=== PATIENT | male | born 1945 | race Caucasian/White ===

== ENCOUNTER 2018-08-07 05:51 | Inpatient (IN) | payer MEDICARE ==
--- NOTE | 2018-07-27 21:48 | HP ---
HISTORY AND PHYSICAL: DATE OF ADMISSION/SURGERY: 08/07/18 DATE OF OFFICE VISIT: 07/27/18 SURGEON: Verenice Chavarria MD * (DICTATED BY LIZZIE FISHER) PROCEDURE: Left total knee arthroplasty. CHIEF COMPLAINT: Left knee pain. HISTORY OF PRESENT ILLNESS: Mr. Sifuentes is a 73-year-old gentleman with end- stage osteoarthritis of the left knee. He has failed conservative treatment and elected to proceed with a left total knee arthroplasty, which is scheduled for 08/07/18. PAST MEDICAL HISTORY: Diabetes and hypertension. PAST SURGICAL HISTORY: Appendectomy, left heel surgery, right knee arthroscopy , and left knee arthroscopy x2. CURRENT MEDICATIONS: 1. Losartan potassium 50 mg daily. 2. Cymbalta daily. 3. Levemir daily. 4. Acyclovir 400 mg twice a day. 5. Glucosamine. 6. Multivitamin. 7. Pravastatin sodium 40 mg q.h.s. 8. Glipizide 10 mg daily. 9. Fish oil 81 mg. 10. Aspirin daily. 11. Testosterone intramuscular injections every 2 weeks. ALLERGIES: None. FAMILY HISTORY: Cancer. SOCIAL HISTORY: A 73-year-old gentleman, who lives with his . He does not smoke or use drugs. Uses alcohol rarely. REVIEW OF SYSTEMS: A complete 14-point review of systems is reviewed with the patient. Positive for diabetes. Denies history of DVT, PE, hepatitis, HIV, or anesthesia problems. PHYSICAL EXAMINATION GENERAL: He is well developed, well nourished, in no acute distress. VITAL SIGNS: He stands 5 feet 10 inches tall, weighs 190 pounds. His blood pressure is 124/70 and heart rate is 72. HEENT: Normocephalic, atraumatic. NECK: Supple. No palpable lymph nodes. PULMONARY: The lungs are clear to auscultation bilaterally. CARDIO: Regular rate and rhythm. Strong S1, S2. ABDOMEN: Soft, nontender, and nondistended. NEUROLOGICAL: He is alert and oriented x3. MUSCULOSKELETAL: Left lower extremity: The skin is intact. There are no open wounds or abrasions. He has some tenderness over the medial and lateral joint line. He has a valgus deformity of 12 degrees. His range of motion is 10 to 130 degrees of flexion with patellofemoral crepitus. 2+ dorsalis pedis pulse, intact sensation. His lower extremity muscle group strengths are intact at 5/5. ASSESSMENT AND PLAN: Mr. Sifuentes is a 73-year-old gentleman with end-stage osteoarthritis of the left knee. He has failed conservative treatment and elected to proceed with a left total knee arthroplasty, which is scheduled for 08/07/[address] Chavarria discussed the risks and benefits of the surgery at today's visit, all of his questions were answered. He will follow up with Dr. Chavarria 2 weeks after the surgery. LIZZIE FISHER [id number]/[facility] #: [id number] KAM
[~2018-08-07 05:51] MED LIST: Buffered Lidocaine 0.9% SYRIN* 5 ML/SYR SYRINGE INTRADERM ONE; Tranexamic Acid 1,000 MG in NS 0.9% 50 ML* (outpatient use) IV SCH
--- OUTSIDE RECORDS SUMMARY | 2018-08-07 05:56 | XMS REPORT | Continuity of Care Document ---
:1945 External Reference #:[id number] Author Name Brannon Anne M.D. Address [address] [place] [address] Care Team Providers Name Role Phone Brannon Anne M.D. Care Team Information Secretary Board Of Commissioners Unavailable Payers Type Date Identification Numbers Payment Provider Subscriber Policy Number: [id number] [employer] Aime Araujo Group Number: [id number] [address] PayID: [id number] FrazeeJAMES [id number] Advance Directives Description No Information Available Problems Description No Information Family History Date Family Member(s) Problem(s) Comments : (age 57 Father due to Cancer rare abdominal. (not Years) colon) Father Non Contributory : (age 88 Mother due to Pneumonia long smoking history. 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 Teaching some history and drawing as well. Tobacco Use Start: Unknown End: Former Cigarette Smoker quit 1979. 7 pk yr hx Unknown Allergies, Adverse Reactions, Alerts Description No Known Drug Allergies Medications Medication Date Status Form Strength Qnty SIG Indications Ordering Provider Cymbalta 07/[address] 30mg 30cap 1 po qd Part s Arpita Anne Pen [place] 12/04 Active Misc 31G X 5 100un 1 injection Brannon 12/15" mm its daily Arpita Anne Losartan 09/12 Active Tablets 50mg 90tab 1 by mouth Brannon s every day Dayana, (instead of M.D. lisinopril) Humalog Kwikpen 09/12 Active Solution 100Unit/M 15ml inject 20-25 Pen-Injec L -30 units Anne, t before dinner M.D. based on predinner blood sugar Bupropion HCL 09/02 Active Tablets 150mg 30tab 1 po qam F32.9 Brannon ER (SR) ER 12HR s Arpita Anne Insulin 12/21 Active Misc 31G X 100un use as Misa Syringe/U-100/02/14" 1 its directed Raheem, ML/31G X 02/14" ML ACTIVITIES LEADER-C Levemir 12/15 Active Solution 100Unit/M 120ml Inject 20 L units qd if Anne, FS>150 M.D. Acyclovir 11/17 Active Tablets 400mg 180ta take one bs tablet by Anne, mouth twice a M.D. day BD 3ML Luer-Yaima 12/01 Active Misc 21G X 1" 50uni for injection Brannon Syringe/21G X 3 ML ts q2 weeks Dayana 1" M.DGelacio BD Disposable 12/01 Active Misc 25G X 1" 50uni for injection Brannon Needle ts every 2 weeks Dayana Bevel 25GX1" M.D. Glucosamine 08/06 Active Capsules Brannon Dominic Anne M.DGelacio Multivitamins 08/06 Active Capsules Brannon Arpita Anne Pravastatin Active Tablets 40mg 90tab 1 by mouth / s every night at Dayana, bedtime M.D. Glipizide Active Tablets 10mg 180ta 1 by mouth bs once times Dayana, daily M.D. Testosterone Active Solution 200mg/ml 10ml 170 mg Brannon Enanthate / intramuscular Dayana, q2 weeks, code M.D. f Cialis Active Tablets 10mg 6tabs 1 by mouth every day as Anne, needed M.D. Freestyle Active Strips 100un test blood Insulinx Blood / its glucose 2-3 Anen, Glucose Test times daily, M.D. Strips on insulin. Januvia Active Tablets 100mg Take 1 Tablet Unknown By Mouth Every Day Fish Oil Active Capsules one by mouth Unknown every day Aspir-81 Active Tablets 81mg 1 by mouth Unknown [address] DR every day Tamicaien 05/26 Hx Tablets 10mg 14tab take 1/2 to 1 s tablet by Tabitha Candelaria, - mouth at [facility] 07/18 bedtime needed for sleep; maximum daily dose=1 Doxycycline 03/27 Hx Capsules 100mg 42cap 1 tab by mouth A69.20 Drew Hyvivian s twice a day x Casandra - 21 days , 07/13 Prednisone 01/02 Hx Tablets 20mg 10tab take 2 tabs by Nikolas9 Misa s mouth every Raheem, - day x 5 days [facility] 01/06 Doxycycline 12/31 Hx Tablets 100mg 20tab 1 tab by mouth Crow18.9 Misa Hyvivian s twice a day x Raheem, - 10 days [facility] 07/13 Guaifenesin-Cod 12/31 Hx Syrup 100-10mg/ 240ml 1-2 teaspoon J18.9 Brannon carrillo 5ML every 4-6 Anne, - hours as M.DGelacio 07/12 needed Ventolin HFA 12/31 Hx Aerosol 108(90Bas 1unit 2 puffs every J18.9 Misa e) s every 4-6 Raheem, - mcg/Act hours as [facility] 10/26 wheezing/tight ness BD Insulin 12/15 Hx Misc 31G X 02/14" 0.3 Anne, Ultrafine/0.3ML - ML M.D. /31G X 02/14" 12/21 Cymbalta 11/[address] 30mg 30cap 1 by mouth Part s every day Dayana - M.DGelacio 10/26 Levemir 12/01 Hx Solution 100Unit/M 30ml inject 70 Brannon Flexto Pen-Injec L units every Anne, - t day M.DGelacio 01/06 BD Pen 08/10 Hx Misc 31G X 5 100un Use as Brannon Needle/Mini/Ul /2014 mm its directed Dayana rafine/31G X - M.DGelacio 12/15" 12/21 Lantus Solostar Hx Solution 100Unit/M 30ml 28 units every Pen-Injec L day Dayana, - t M.DGelacio 12/01 Lisinopril Hx Tablets 20mg 90tab 1 by mouth s every day Dayana - M.DGelacio 10/26 Acyclovir Hx Capsules 200mg 370ca 2 po bid ps Dayana - M.DGelacio 11/17 BD 3ML Hx Misc 25G X 1" Unknown Syringe/Safetyg /0000 3 ML lide Shielding - Needle 25GX5/8" 12/21 Immunizations CPT Code Status Date Vaccine Lot # [id number] Given 04/05/2018 Hepatitis A, Adult [id number] Given 07/13/2017 Prevnar-13 Pneumococcal Conjugate Vaccine [id number] Given 06/16/2016 Tdap (Adacel) [id number] Given 07/09/2009 Zoster Vaccine [id number] Given 07/09/2009 Pneumovax 23 (PPSV23) 65+ years or high risk 2 to 64 year old [id number] Refused 08/07/2015 Influenza Virus Vaccine, Quadrivalent, 3 Yr > Quad , Preserv Free Vital Signs Date Vital Result Comment 07/18/2018 11:24am Weight 189.00 lb Weight 85.730 kg BP Systolic 128 mmHg BP Diastolic 76 mmHg Heart Rate 70 /min Body Temperature 97.8 F Respiratory Rate 17 /min Height 69.5 inches 5'9.50" BMI (Body Mass Index) 27.5 kg/m2 O2 % BldC Oximetry 96 % 11/28/2017 11:45am Weight 198.00 lb Weight 89.813 kg BP Systolic 124 mmHg BP Diastolic 78 mmHg Heart Rate 72 /min Body Temperature 97.8 F Respiratory Rate 17 /min O2 % BldC Oximetry 97 % 10/26/2017 5:01pm Weight 203.00 lb Weight 92.081 kg BP Systolic 150 mmHg BP Diastolic 68 mmHg Heart Rate 69 /min Body Temperature 97.8 F Respiratory Rate 18 /min O2 % BldC Oximetry 97 % 09/02/2017 10:19am Weight 198.00 lb Weight 89.813 kg BP Systolic 122 mmHg BP Diastolic 80 mmHg Heart Rate 89 /min Body Temperature 97.4 F O2 % BldC Oximetry 98 % 07/13/2017 2:04pm Weight 199.00 lb Weight 90.266 kg BP Systolic 124 mmHg BP Diastolic 70 mmHg Heart Rate 64 /min Body Temperature 97.4 F Respiratory Rate 14 /min Height 70 inches 5'10" BMI (Body Mass Index) 28.6 kg/m2 03/27/2017 4:55pm Weight 196.00 lb Weight 88.906 kg BP Systolic 130 mmHg BP Diastolic 76 mmHg Heart Rate 74 /min Body Temperature 98.7 F Respiratory Rate 20 /min O2 % BldC Oximetry 97 % 01/06/2017 8:50am Weight 191.00 lb Weight 86.638 kg BP Systolic 118 mmHg BP Diastolic 72 mmHg Heart Rate 77 /min Body Temperature 96.1 F Respiratory Rate 16 /min O2 % BldC Oximetry 97 % 12/31/2016 9:37am BP Systolic 110 mmHg BP Diastolic 70 mmHg Heart Rate 91 /min Body Temperature 99.1 F O2 % BldC Oximetry 92 % On Room Air 12/15/2016 10:44am Weight 200.00 lb Weight 90.720 kg BP Systolic 140 mmHg BP Diastolic 80 mmHg Heart Rate 80 /min 11/17/2016 9:47am Weight 199.00 lb Weight 90.266 kg BP Systolic 130 mmHg BP Diastolic 80 mmHg Heart Rate 64 /min Body Temperature 98.7 F Respiratory Rate 12 /min 07/28/2016 10:16am Weight 198.00 lb Weight 89.813 kg BP Systolic 120 mmHg BP Diastolic 72 mmHg Heart Rate 68 /min Body Temperature 98.1 F Respiratory Rate 16 /min 04/20/2016 4:00pm Weight 196.00 lb Weight 88.906 kg BP Systolic 150 mmHg BP Diastolic 70 mmHg Heart Rate 70 /min Body Temperature 98.6 F Respiratory Rate 12 /min O2 % BldC Oximetry 98 % 01/05/2016 2:48pm Weight 200.00 lb Weight 90.720 kg BP Systolic 130 mmHg BP Diastolic 68 mmHg Heart Rate 70 /min 12/02/2015 8:51am Weight 198.00 lb Weight 89.813 kg BP Systolic 131 mmHg BP Diastolic 76 mmHg Heart Rate 76 /min Height 70.5 inches 5'10.50" BMI (Body Mass Index) 28.0 kg/m2 08/06/2015 10:57am Weight 198.00 lb Weight 89.813 kg BP Systolic 144 mmHg BP Diastolic 86 mmHg Heart Rate 66 /min Height 69.5 inches 5'9.50" BMI (Body Mass Index) 28.8 kg/m2 Results Test Date Facility Test Result H/L Range Note Inr/Protime 07/27/2018 [facility] Inr 0.97 0.77- 1.02 7 [phone] Laboratory test 07/27/2018 [facility] Partial 29.4 seconds 26.0-36.3 2 finding [phone] Thrombo Time PTT Type & Screen 07/27/2018 [facility] Patient O Positive [phone] Blood Type Antibody Screen NEGATIVE Urine Microalbumin 07/18/2018 [facility] Ur Microalbumin < 15.0 Random [phone] (mg/L) Urine Creatinine 122.21 mg/dL Urine Microalbumin/Creatinine TNP <31 3 Comp Metabolic Panel 07/10/2018 [facility] Sodium 137 mmol/L 135-145 [phone] Potassium 4.8 mmol/L 3.5-5.0 Chloride 101 mmol/L 101-111 Co2 Carbon Dioxide 29 mmol/L 22-32 Anion Gap 7 mmol/L 2-11 Glucose 234 mg/dL High 70-100 Blood Urea Nitrogen 22 mg/dL 6-24 Creatinine 0.95 mg/dL 0.67-1.17 BUN/Creatinine Ratio 23.2 High 8-20 Calcium 9.4 mg/dL 8.6-10.3 Total Protein 6.4 g/dL 6.4-8.9 Albumin 4.4 g/dL 3.2-5.2 Globulin 2.0 g/dL 2-4 Albumin/Globulin Ratio 2.2 1-3 Total Bilirubin 0.60 mg/dL 0.2-1.0 Alkaline Phosphatase 52 U/L 34-104 Alt 44 U/L 7-52 Ast 28 U/L 13-39 Egfr Non- 78.2 >60 Egfr 94.6 >60 4 Lipid Profile 07/10/2018 [facility] Triglycerides 510 mg/dL 5 (Trig/Chol/HDL) [phone] Cholesterol 203 mg/dL 6 HDL Cholesterol 37.0 mg/dL 7 LDL Cholesterol (SEE NOTE) mg/dL 8 CBC Auto Diff 07/10/2018 [facility] White Blood 7.1 10^3/uL 3.5-10.8 [phone] Count Red Blood Count 4.93 10^6/uL 4.00-5.40 Hemoglobin 14.7 g/dL 14.0-18.0 Hematocrit 44 % 42-52 Mean Corpuscular Volume 89 fL 80-94 Mean Corpuscular Hemoglobin 30 pg 27-31 Mean Corpuscular HGB Conc 34 g/dL 31-36 Red Cell Distribution Width 14 % 10.5-15 Platelet Count 171 10^3/uL 150-450 Mean Platelet Volume 9.0 um3 7.4-10.4 Abs Neutrophils 4.4 10^3/uL 1.5-7.7 Abs Lymphocytes 2.1 10^3/uL 1.0-4.8 Abs Monocytes 0.6 10^3/uL 0-0.8 Abs Eosinophils 0.1 10^3/uL 0-0.6 Abs Basophils 0 10^3/uL 0-0.2 Abs Nucleated RBC 0.1 10^3/uL Granulocyte % 61.4 % 38-83 Lymphocyte % 28.9 % 25-47 Monocyte % 8.3 % High 0-7 Eosinophil % 1.1 % 0-6 Basophil % 0.3 % 0-2 Nucleated Red Blood Cells % 0.7 Laboratory test 07/10/2018 [facility] Testosterone 171.48 Low 240-950 9 finding [phone] Total ng/dL LDL Cholesterol Direct 69 mg/dL 10 Istat BUN/Crea/Egfr/V 11/10/2017 [facility] Poc Bun 20 mg/dL High 9-18 Mainct [phone] Mainct Poc Crea Mainct 0.9 mg/dL 0.6-0.9 GFR Non- MCT 83.4 >60 GFR Mainct 107.3 >60 11 Comp Metabolic 10/26/2017 [facility] Sodium 137 mmol/ L 133-145 12 Panel [phone] Potassium 4.2 mmol/L 3.5-5.0 Chloride 102 mmol/L 101-111 Co2 Carbon Dioxide 30 mmol/L 22-32 Anion Gap 5 mmol/L 2-11 Glucose 139 mg/dL High 70-100 Blood Urea Nitrogen 17 mg/dL 6-24 Creatinine 0.99 mg/dL 0.67-1.17 BUN/Creatinine Ratio 17.2 8-20 Calcium 9.3 mg/dL 8.6-10.3 Total Protein 6.6 g/dL 6.4-8.9 Albumin 4.4 g/dL 3.2-5.2 Globulin 2.2 g/dL 2-4 Albumin/Globulin Ratio 2.0 1-3 Total Bilirubin 0.70 mg/dL 0.2-1.0 Alkaline Phosphatase 55 U/L 34-104 Alt 54 U/L High 7-52 Ast 28 U/L 13-39 Egfr Non- 74.7 >60 Egfr 96.1 >60 13 Laboratory test 10/26/2017 [facility] Lipase 21 U/L 11.0-82.0 14 finding [phone] CBC Auto Diff 10/26/2017 [facility] White Blood 6.4 3.5-10.8 [phone] Count 10^3/uL Red Blood Count 4.89 10^6/uL 4.0-5.4 Hemoglobin 15.1 g/dL 14.0-18.0 Hematocrit 43 % 42-52 Mean Corpuscular Volume 89 fL 80-94 Mean Corpuscular Hemoglobin 31 pg 27-31 Mean Corpuscular HGB Conc 35 g/dL 31-36 Red Cell Distribution Width 14 % 10.5-15 Platelet Count 178 10^3/uL 150-450 Mean Platelet Volume 9 um3 7.4-10.4 Abs Neutrophils 3.5 10^3/uL 1.5-7.7 Abs Lymphocytes 2.3 10^3/uL 1.0-4.8 Abs Monocytes 0.5 10^3/uL 0-0.8 Abs Eosinophils 0.1 10^3/uL 0-0.6 Abs Basophils 0 10^3/uL 0-0.2 Abs Nucleated RBC 0 10^3/uL Granulocyte % 53.7 % 38-83 Lymphocyte % 35.9 % 25-47 Monocyte % 8.4 % 1-9 Eosinophil % 1.6 % 0-6 Basophil % 0.4 % 0-2 Nucleated Red Blood Cells % 0.1 Laboratory test 05/04/2017 [facility] Hemoglobin A1c 7.0 % High Less 15, 16 finding [phone] than 6.0 CBC Auto Diff 05/04/2017 [facility] White Blood 7.3 3.5-10.8 [phone] Count 10^3/uL Red Blood Count 5.66 10^6/uL High 4.0-5.4 Hemoglobin 16.8 g/dL 14.0-18.0 Hematocrit 51 % 42-52 Mean Corpuscular Volume 91 fL 80-94 Mean Corpuscular Hemoglobin 30 pg 27-31 Mean Corpuscular HGB Conc 33 g/dL 31-36 Red Cell Distribution Width 15 % 10.5-15 Platelet Count 173 10^3/uL 150-450 Mean Platelet Volume 9 um3 7.4-10.4 Abs Neutrophils 4.2 10^3/uL 1.5-7.7 Abs Lymphocytes 2.3 10^3/uL 1.0-4.8 Abs Monocytes 0.6 10^3/uL 0-0.8 Abs Eosinophils 0.1 10^3/uL 0-0.6 Abs Basophils 0 10^3/uL 0-0.2 Abs Nucleated RBC 0.01 10^3/uL Granulocyte % 58.2 % 38-83 Lymphocyte % 31.3 % 25-47 Monocyte % 8.6 % 1-9 Eosinophil % 1.6 % 0-6 Basophil % 0.3 % 0-2 Nucleated Red Blood Cells % 0.1 Comp Metabolic Panel 05/04/2017 [facility] Sodium 140 mmol/L 133-145 [phone] Potassium 4.3 mmol/L 3.5-5.0 Chloride 102 mmol/L 101-111 Co2 Carbon Dioxide 30 mmol/L 22-32 Anion Gap 8 mmol/L 2-11 Glucose 99 mg/dL 70-100 Blood Urea Nitrogen 23 mg/dL 6-24 Creatinine 1.03 mg/dL 0.67-1.17 BUN/Creatinine Ratio 22.3 High 8-20 Calcium 9.6 mg/dL 8.6-10.3 Total Protein 6.9 g/dL 6.4-8.9 Albumin 4.3 g/dL 3.2-5.2 Globulin 2.6 g/dL 2-4 Albumin/Globulin Ratio 1.7 1-3 Total Bilirubin 0.70 mg/dL 0.2-1.0 Alkaline Phosphatase 47 U/L 34-104 Alt 58 U/L High 7-52 Ast 29 U/L 13-39 Egfr Non- 71.6 >60 Egfr 92.1 >60 17 Lipid Profile 05/04/2017 [facility] Triglycerides 417 mg/dL 18 (Trig/Chol/HDL) [phone] Cholesterol 190 mg/dL 19 HDL Cholesterol 34.7 mg/dL 20 LDL Cholesterol (SEE NOTE) mg/dL 21 Laboratory test 05/04/2017 [facility] LDL Cholesterol 73 mg/dL 22 finding [phone] Direct Testosterone 167.84 ng/dL Low 240-950 23 Laboratory 10/17/2016 [facility] Testosterone 442.90 240-950 24, test finding [phone] ng/dL 25 Laboratory 09/15/2016 [facility] Testosterone 980.42 High 240-950 26, test finding [phone] ng/dL 27 Laboratory 07/26/2016 [facility] Hemoglobin A1c 7.2 % High Less than 28, test finding [phone] 6.0 29 Comp 07/26/2016 [facility] Sodium 136 133-145 Metabolic [phone] mmol/L Panel Potassium 4.4 mmol/L 3.5-5.0 Chloride 98 mmol/L Low 101-111 Co2 Carbon Dioxide 33 mmol/L High 22-32 Anion Gap 5 mmol/L 2-11 Glucose 227 mg/dL High 70-100 Blood Urea Nitrogen 19 mg/dL 6-24 Creatinine 1.05 mg/dL 0.67-1.17 BUN/Creatinine Ratio 18.1 8-20 Calcium 9.6 mg/dL 8.6-10.3 Total Protein 6.8 g/dL 6.4-8.9 Albumin 4.5 g/dL 3.2-5.2 Globulin 2.3 g/dL 2-4 Albumin/Globulin Ratio 2.0 1-3 Total Bilirubin 0.80 mg/dL 0.2-1.0 Alkaline Phosphatase 49 U/L 34-104 Alt 42 U/L 7-52 Ast 22 U/L 13-39 Egfr Non- 70.0 >60 Egfr 90.1 >60 30 Lipid Profile 07/26/2016 [facility] Triglycerides 676 mg/dL 31 (Trig/Chol/HDL) [phone] Cholesterol 189 mg/dL 32 HDL Cholesterol 29.6 mg/dL 33 LDL Cholesterol (SEE NOTE) mg/dL 34 Laboratory test 07/26/2016 [facility] LDL Cholesterol 59 mg/dL 35 finding [phone] Direct Testosterone 126.31 ng/dL Low 240-950 36 Laboratory test 06/30/2016 [facility] Surgical SEE RESULT 37 finding [phone] Interface Order BELOW Laboratory test 05/06/2016 [facility] Surgical SEE RESULT 38, 39 finding [phone] Interface Order BELOW Urine Microalbumin 12/03/2015 [facility] Urine 145.57 Random [phone] Creatinine mg/dL Ur Microalbumin (mg/L) 10.0 mg/L Urine Microalbumin/Creatinine 6.8 ug/mg <31 Lipid Profile 11/24/2015 [facility] Triglycerides 570 mg/dL 40 (Trig/Chol/HDL) [phone] Cholesterol 172 mg/dL 41 HDL Cholesterol 27.4 mg/dL 42 Comp Metabolic Panel 11/24/2015 [facility] Sodium 137 mmol/L 133-145 [phone] Potassium 4.4 mmol/L 3.5-5.0 Chloride 99 mmol/L Low 101-111 Co2 Carbon Dioxide 32 mmol/L 22-32 Anion Gap 6 mmol/L 2-11 Glucose 205 mg/dL High 70-100 Blood Urea Nitrogen 15 mg/dL 6-24 Creatinine 1.05 mg/dL 0.67-1.17 BUN/Creatinine Ratio 14.3 8-20 Calcium 9.5 mg/dL 8.6-10.3 Total Protein 6.7 g/dL 6.4-8.9 Albumin 4.4 g/dL 3.2-5.2 Globulin 2.3 g/dL 2-4 Albumin/Globulin Ratio 1.9 1-3 Total Bilirubin 0.70 mg/dL 0.2-1.0 Alkaline Phosphatase 53 U/L 34-104 Alt 50 U/L 7-52 Ast 23 U/L 13-39 Egfr Non- 70.2 >60 Egfr 90.3 >60 43 CBC Auto Diff 11/24/2015 [facility] White Blood 7.0 10^3/uL 3.5-10.8 [phone] Count Red Blood Count 5.70 10^6/uL High 4.0-5.4 Hemoglobin 17.0 g/dL 14.0-18.0 Hematocrit 51 % 42-52 Mean Corpuscular Volume 90 fL 80-94 Mean Corpuscular Hemoglobin 30 pg 27-31 Mean Corpuscular HGB Conc 33 g/dL 31-36 Red Cell Distribution Width 14 % 10.5-15 Platelet Count 183 10^3/uL 150-450 Mean Platelet Volume 9 um3 7.4-10.4 Abs Neutrophils 4.3 10^3/uL 1.5-7.7 Abs Lymphocytes 2.0 10^3/uL 1.0-4.8 Abs Monocytes 0.5 10^3/uL 0-0.8 Abs Eosinophils 0.1 10^3/uL 0-0.6 Abs Basophils 0 10^3/uL 0-0.2 Abs Nucleated RBC 0.01 10^3/uL Granulocyte % 61.0 % 38-83 Lymphocyte % 29.1 % 25-47 Monocyte % 7.7 % 1-9 Eosinophil % 1.7 % 0-6 Basophil % 0.5 % 0-2 Nucleated Red Blood Cells % 0.1 Laboratory test 11/24/2015 [facility] Hemoglobin A1c 8.2 % High Less than 44 finding [phone] (Glyco HGB) 6.0 CBC Auto Diff 08/06/2015 [facility] White Blood 7.0 4.8-10.8 [phone] Count 10^3/uL Red Blood Count 5.24 10^6/uL 4.0-5.4 Hemoglobin 16.1 g/dL 14.0-18.0 Hematocrit 48 % 42-52 Mean Corpuscular Volume 92 fL 80-94 Mean Corpuscular Hemoglobin 31 pg 27-31 Mean Corpuscular HGB Conc 33 g/dL 31-36 Red Cell Distribution Width 14 % 10.5-15 Platelet Count 175 10^3/uL 150-450 Mean Platelet Volume 10 um3 7.4-10.4 Abs Neutrophils 3.9 10^3/uL 1.5-7.7 Abs Lymphocytes 2.3 10^3/uL 1.0-4.8 Abs Monocytes 0.6 10^3/uL 0-0.8 Abs Eosinophils 0.1 10^3/uL 0-0.6 Abs Basophils 0 10^3/uL 0-0.2 Abs Nucleated RBC 0.02 10^3/uL Granulocyte % 56.3 % 38-83 Lymphocyte % 33.3 % 25-47 Monocyte % 8.7 % 1-9 Eosinophil % 1.1 % 0-6 Basophil % 0.6 % 0-2 Nucleated Red Blood Cells % 0.3 Laboratory test 08/06/2015 [facility] Vitamin B12 315 pg/mL 180-914 45 finding [phone] TSH (Thyroid Stim Horm) 1.38 ?IU/mL 0.34-5.60 Comp Metabolic Panel 08/06/2015 [facility] Sodium 138 mmol/L 133-145 [phone] Potassium 4.1 mmol/L 3.5-5.0 Chloride 104 mmol/L 101-111 Co2 Carbon Dioxide 27 mmol/L 22-32 Anion Gap 7 mmol/L 2-11 Glucose 163 mg/dL High 70-100 Blood Urea Nitrogen 21 mg/dL 6-24 Creatinine 1.00 mg/dL 0.67-1.17 BUN/Creatinine Ratio 21.0 High 8-20 Calcium 9.4 mg/dL 8.6-10.3 Total Protein 6.6 g/dL 6.4-8.9 Albumin 4.5 g/dL 3.2-5.2 Globulin 2.1 g/dL 2-4 Albumin/Globulin Ratio 2.1 1-3 Total Bilirubin 0.80 mg/dL 0.2-1.0 Alkaline Phosphatase 44 U/L 34-104 Alt 50 U/L 7-52 Ast 22 U/L 13-39 Egfr Non- 74.3 >60 Egfr 95.6 >60 46 Laboratory test 08/06/2015 [facility] Hemoglobin A1c 7.4 % High Less than 47 slritdo [phone] (Glyco HGB) 6.0 1 AA 08/07 2 AA 08/07 3 Unable to calculate due to low microalbumin 4 Because ethnic data is not always readily available, this report includes an eGFR for both -Americans and non- Americans. The National Kidney Disease Education Program (NKDEP) does not endorse the use of the MDRD equation for patients that are not between the ages of 18 and 70, are , have extremes of body size, muscle mass, or nutritional status, or are non- or non-. According to the National Kidney Foundation, irrespective of diagnosis, the stage of the disease is based on the level of kidney function: Stage Description GFR(mL/min/1.73 m(2)) 1 Kidney damage with normal or decreased GFR 90 2 Kidney damage with mild decrease in GFR 60-89 3 Moderate decrease in GFR 30-59 4 Severe decrease in GFR 15-29 5 Kidney failure <15 (or dialysis) 5 Desirable: <150 Borderline High: 150-199 High: 200-499 Very High: >500 6 Desirable: <200 Borderline High: 200-239 High: >239 7 Low: <40 Desirable: 40-60 High: >60 8 Unable to calculate LDL as triglyceride is > 400 9 [id number] FASTING 10 Desirable: <100 Near Optimal: 100-129 Borderline High: 130-159 High: 160-189 Very High: >189 11 Because ethnic data is not always readily available, this report includes an eGFR for both -Americans and non- Americans. The National Kidney Disease Education Program (NKDEP) does not endorse the use of the MDRD equation for patients that are not between the ages of 18 and 70, are , have extremes of body size, muscle mass, or nutritional status, or are non- or non-. According to the National Kidney Foundation, irrespective of diagnosis, the stage of the disease is based on the level of kidney function: Stage Description GFR(mL/min/1.73 m(2)) 1 Kidney damage with normal or decreased GFR 90 2 Kidney damage with mild decrease in GFR 60-89 3 Moderate decrease in GFR 30-59 4 Severe decrease in GFR 15-29 5 Kidney failure <15 (or dialysis) 12 [id number] 13 Because ethnic data is not always readily available, this report includes an eGFR for both -Americans and non- Americans. The National Kidney Disease Education Program (NKDEP) does not endorse the use of the MDRD equation for patients that are not between the ages of 18 and 70, are , have extremes of body size, muscle mass, or nutritional status, or are non- or non-. According to the National Kidney Foundation, irrespective of diagnosis, the stage of the disease is based on the level of kidney function: Stage Description GFR(mL/min/1.73 m(2)) 1 Kidney damage with normal or decreased GFR 90 2 Kidney damage with mild decrease in GFR 60-89 3 Moderate decrease in GFR 30-59 4 Severe decrease in GFR 15-29 5 Kidney failure <15 (or dialysis) 14 [id number] 16 Therapeutic target for the treatment of diabetes Mellitus patients is <7% HBA1C, and in selective patients <6.0%.Please refer to [place] [employer] Diabetic care guidelines for further information. 17 Because ethnic data is not always readily available, this report includes an eGFR for both -Americans and non- Americans. The National Kidney Disease Education Program (NKDEP) does not endorse the use of the MDRD equation for patients that are not between the ages of 18 and 70, are , have extremes of body size, muscle mass, or nutritional status, or are non- or non-. According to the National Kidney Foundation, irrespective of diagnosis, the stage of the disease is based on the level of kidney function: Stage Description GFR(mL/min/1.73 m(2)) 1 Kidney damage with normal or decreased GFR 90 2 Kidney damage with mild decrease in GFR 60-89 3 Moderate decrease in GFR 30-59 4 Severe decrease in GFR 15-29 5 Kidney failure <15 (or dialysis) 18 Desirable <150 Borderline high 150-199 High 200-499 Very High >500 19 Desirable <200 Borderline high 200-239 High >239 20 Low <40 Desirable: 40-60 High: >60 21 Unable to calculate LDL as triglyceride is > 400 22 Desirable: <100 mg/dL Near Optimal: 100-129 mg/dL Borderline High: 130-159 mg/dL High: 160-189 mg/dL Very High: >189 mg/dL 23 [id number] Therapeutic target for the treatment of diabetes Mellitus patients is <7% HBA1C, and in selective patients <6.0%.Please refer to [place] [employer] Diabetic care guidelines for further information. 30 Because ethnic data is not always readily available, this report includes an eGFR for both -Americans and non- Americans. The National Kidney Disease Education Program (NKDEP) does not endorse the use of the MDRD equation for patients that are not between the ages of 18 and 70, are , have extremes of body size, muscle mass, or nutritional status, or are non- or non-. According to the National Kidney Foundation, irrespective of diagnosis, the stage of the disease is based on the level of kidney function: Stage Description GFR(mL/min/1.73 m(2)) 1 Kidney damage with normal or decreased GFR 90 2 Kidney damage with mild decrease in GFR 60-89 3 Moderate decrease in GFR 30-59 4 Severe decrease in GFR 15-29 5 Kidney failure <15 (or dialysis) 31 Desirable <150 Borderline high 150-199 High 200-499 Very High >500 32 Desirable <200 Borderline high 200-239 High >239 33 Low <40 Desirable: 40-60 High: >60 34 Unable to calculate LDL as triglyceride is > 400 35 Desirable: <100 mg/dL Near Optimal: 100-129 mg/dL Borderline High: 130-159 mg/dL High: 160-189 mg/dL Very High: >189 mg/dL 36 [id number] SEE RESULT BELOW Name: AIME ARAUJO : [address]: Mahad Ahumada MD Acct: [id number] Unit: [id number] AGE: 71 Location: ENDO Re06/30/16 SEX: M Status: REG REF SPEC: [id number] SHELIA: 06/30/16-[address]: Mahad Ahumada MD REQ: [id number] RECD: 06/30/16 STATUS: RAMSES VERDE DR: Brannon Anne MD _ ORDERED: LEVEL IV/4 FINAL DIAGNOSIS 1. Colon, cecum, biopsy: -- Tubular adenoma. -- No high grade dysplasia or malignancy. 2. Colon, transverse, biopsy: -- Tubular adenoma. -- No high grade dysplasia or malignancy. 3. Colon, at 30 cm, biopsy: -- Tubular adenoma. -- No high grade dysplasia or malignancy. 4. Colon, rectum, biopsy: -- Hyperplastic polyp. CLINICAL HISTORY No history given POST-OPERATIVE DIAGNOSIS Colonoscopy into terminal ileum, prep good - 5 small polyps removed, mild sigmoid diverticulosis. Conclusions/Plan: Five small polyps removed GROSS DESCRIPTION 1. The specimen is received in formalin labeled, Biopsy Cecal Polyps, and consists of two speckled mckenzie-brown irregular to polypoid soft tissue fragments measuring 0.4 x 0.3 x 0.3 cm and 0.5 x 0.3 x 0.1 cm, which are entirely submitted in one cassette. 2. The specimen is received in formalin labeled, Biopsy Transverse Colon Polyp, and consists of a 0.4 x 0.3 x 0.3 cm mckenzie polypoid soft tissue fragment, which is entirely CONTINUED ON NEXT PAGE * ML=Testing performed at Main Lab DEPARTMENT OF PATHOLOGY, [address] [place] [address] Armando Ervin M.D. Director [facility] # [id number] RUN DATE: 07/01/16 [facility] LAB LIVE PAGE 2 Patient: AIME ARAUJO [id number] (Continued) GROSS DESCRIPTION (Continued) GROSS DESCRIPTION (Continued) submitted in one cassette. 3. The specimen is received in formalin labeled, Biopsy Colon Polyp at 30 cm, and consists of a 0.6 by up to 0.2 x 0.1 cm mckenzie-brown irregular to polypoid soft tissue fragments, which is entirely submitted in one cassette. 4. The specimen is received in formalin labeled, Biopsy Rectal Polyps, and consists of two speckled mckenzie-brown irregular to polypoid soft tissue fragments averaging 0.3 x 0.3 x 0.2 cm, which are entirely submitted in one cassette. Signed (signature on file) Pham Banuelos MD 1629 END OF REPORT * ML=Testing performed at Main Lab DEPARTMENT OF PATHOLOGY, [address] [place] [address] Armando Ervin M.D. Director [facility] # [id number] 38 [id number] SEE RESULT BELOW Name: AIME ARAUJO : [address]: Mahad Ahumada MD Acct: [id number] Unit: [id number] AGE: 70 Location: [facility] Re05/06/16 SEX: M Status: REG REF SPEC: [id number] SHELIA: 05/06/16-323[facility] DR: Mahad Ahumada MD REQ: [id number] RECD: 05/06/16-1606 STATUS: RAMSES VERDE DR: Brannon Anne MD _ ORDERED: KERATIN STAIN, LEVEL IV, HP-ADD COMMENTS: [id number] FINAL DIAGNOSIS Stomach, antrum, biopsy: -- Antral-type gastric mucosa with marked chronic, active Helicobacter gastritis. COMMENT: Deeper levels of sectioning as well as H. pylori and pankeratin immunostains, with appropriately reacting controls, were performed and support the diagnosis. Dr. Ervin reviewed this case in intradepartmental consultation and agrees with the diagnosis. CLINICAL HISTORY Abdominal pain/abnormal CT scan - gastric thickening POST-OPERATIVE DIAGNOSIS Esophagus - normal; stomach - 3 antral ulcers with surrounding inflammation biopsied; duodenum - mild duodenitis, normal second/third portions. Conclusions/Plan: Gastric ulcers GROSS DESCRIPTION The specimen is received in formalin labeled, Antral Ulcers, and consists of a 0.7 x 0.6 x 0.2 cm aggregate of mckenzie irregular soft tissue fragments, which is submitted entirely in one cassette. Signed (signature on file) Pham Banuelos MD 06/17 1603 END OF REPORT * ML=Testing performed at Main Lab DEPARTMENT OF PATHOLOGY, [address] [place] [address] Armando Ervin M.D. Director [facility] # [id number] 40 Desirable <150 Borderline high 150-199 High 200-499 Very High >500 41 Desirable <200 Borderline high 200-239 High >239 42 Low <40 Desirable: 40-60 High: >60 43 Because ethnic data is not always readily available, this report includes an eGFR for both -Americans and non- Americans. The National Kidney Disease Education Program (NKDEP) does not endorse the use of the MDRD equation for patients that are not between the ages of 18 and 70, are , have extremes of body size, muscle mass, or nutritional status, or are non- or non-. According to the National Kidney Foundation, irrespective of diagnosis, the stage of the disease is based on the level of kidney function: Stage Description GFR(mL/min/1.73 m(2)) 1 Kidney damage with normal or decreased GFR 90 2 Kidney damage with mild decrease in GFR 60-89 3 Moderate decrease in GFR 30-59 4 Severe decrease in GFR 15-29 5 Kidney failure <15 (or dialysis) 44 Therapeutic target for the treatment of diabetes Mellitus patients is <7% HBA1C, and in selective patients <6.0%.Please refer to [place] [employer] Diabetic care guidelines for further information. 45 Normal Range 180 to 914 Indeterminate Range 145 to 180 Deficient Range <145 46 Because ethnic data is not always readily available, this report includes an eGFR for both -Americans and non- Americans. The National Kidney Disease Education Program (NKDEP) does not endorse the use of the MDRD equation for patients that are not between the ages of 18 and 70, are , have extremes of body size, muscle mass, or nutritional status, or are non- or non-. According to the National Kidney Foundation, irrespective of diagnosis, the stage of the disease is based on the level of kidney function: Stage Description GFR(mL/min/1.73 m(2)) 1 Kidney damage with normal or decreased GFR 90 2 Kidney damage with mild decrease in GFR 60-89 3 Moderate decrease in GFR 30-59 4 Severe decrease in GFR 15-29 5 Kidney failure <15 (or dialysis) 47 Therapeutic target for the treatment of diabetes Mellitus patients is <7% HBA1C, and in selective patients <6.0%.Please refer to [place] [employer] Diabetic care guidelines for further information. Procedures Date Code Description Status 07/18/2018 93631 EKG, at Least 12 Leads w/Interpretation and Report Completed 12/31/2016 75681 Nebulizer Treatment Completed 06/30/2016 [id number] Colonoscopy Completed 04/20/2016 98760 EKG, at Least 12 Leads w/Interpretation and Report Completed 12/02/2015 99429 EKG, at Least 12 Leads w/Interpretation and Report Completed Encounters Type Date Location Provider Dx Diagnosis Office Visit 11/28/2017 11:45a Main Office Brannon Anne M.D. M25.562 Pain in left knee R10.9 Unspecified abdominal pain E11.9 Type 2 diabetes mellitus without complications Office Visit 10/26/2017 4:45p Main Office Brannon Anne R10.9 Unspecified abdominal M.D. pain Office Visit 09/02/2017 10:30a Main Office Brannon Anne E11.9 Type 2 diabetes M.D. mellitus without complications F32.9 Major depressive disorder, single episode, unspecified Office Visit 07/13/2017 2:00p Main Office Brannon Anne M.D. 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 E11.9 Type 2 diabetes mellitus without complications F51.02 Adjustment insomnia Office Visit 11/17/2016 9:45a Main Office Brannon Anne E11.9 Type 2 diabetes M.D. mellitus without complications E29.1 Testicular hypofunction M25.562 Pain in left knee Office Visit 07/28/2016 10:15a Main Office Brannon Anne E11.9 Type 2 diabetes M.D. mellitus without complications E29.1 Testicular hypofunction I10 Essential (primary) hypertension Office Visit 04/20/2016 3:45p Main Office Brannon Anne M.D. R11.0 Nausea E11.9 Type 2 diabetes mellitus without complications Office Visit 01/05/2016 2:30p Main Office Rena Linares.9 Type 2 diabetes M.D. mellitus without complications Office Visit 12/02/2015 8:45a Main Office Brannon Anne Z00.01 Encounter for general M.D. adult medical exam w abnormal findings E11.9 Type 2 diabetes mellitus without complications I10 Essential (primary) hypertension D22.9 Melanocytic nevi, unspecified Office Visit 08/06/2015 10:45a Main Office Denis Linares9 Type 2 diabetes M.D. mellitus without complications I10 Essential (primary) hypertension G60.3 Idiopathic progressive neuropathy Plan of Treatment 07/18/2018 - Brannon Anne M.D.Z01.818 Encounter for other preprocedural examinationComments:Low risk for surgery. No further testing indicated prior to surgery per AHA and ACC guidelines. He will stop aspirin one week before surgery.Dr Quinteros has suggested he will likely need insulin after surgery and recommends 20units of levemir if his fasting glucose is over 150.He will also increase glipizide to 5mg bid if needed.He will hold his glipizide the morning of surgery.M17.9 Osteoarthritis of knee, [id number] Type 2 diabetes mellitus without complicationsRecommendations:Dr Quinteros expected your sugars to increase after surgery. He recommended restarting 20 units of levemirif your fasting sugars are over 150 in the morning. He also recommended increasing glipizide 5-10mgtwice a day. I also suspect that not taking glipizide the morning of surgery or any day you are noteating. Stop the aspirin a week before surgery.
--- OUTSIDE RECORDS SUMMARY | 2018-08-07 05:56 | XMS REPORT ---
:1945 External Reference #:[id number] Author Organization [facility] Address [address] [place] [address] [place] [address] Phone [phone] Care Team Providers Name Role Phone Brannon Anne M.D. Primary Care Physician Unavailable Payers Type Date Identification Numbers Payment Provider Subscriber Health Maintenance Effective: Policy Number: Medicare Cm Sifuentes [facility] ([facility] 10/02/2017 [id number] Ppo PayID: [id number] [address] [address] [place] [address] Problems Date Description Provider Status Onset: 12/11/2017 Localized, primary osteoarthritis Verenice Chavarria M.D. 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 ETOH Use Occasionally consumes alcohol Smoking Patient has never smoked Exercise Type/Frequency Exercises regularly Allergies, Adverse Reactions, Alerts Date Description Reaction Status Severity Comments 12/11/2017 NKDA active Medications Medication Date Status Form Strength Qnty SIG Indications Ordering Provider Losartan Active Unknown Potassium 000 Humalog Kwikpen Active Unknown 000 Bupropion HCL ER Active Unknown (SR) 000 Levemir Active Unknown 000 Acyclovir Active Unknown 000 BD 3ML Luer-Yaima Active Unknown Syringe Inject Q2 000 Weeks Glucosamine 1500 Active Unknown Complex 000 Multivitamins Active Unknown 000 Pravastatin Active Unknown Sodium 000 Glipizide Active 5mg 1 tab q Unknown 000 hs Cialis Active Unknown 000 Januvia Active Tablets 100mg Take 1 Unknown 000 Tablet By Mouth Every Day Medications Administered in Office Medication Date Status Form Strength Qnty SIG Indications Ordering Provider Depomedrol Administered Injection Verenice 40MG 018 Arpita Chavarria Depomedrol Administered Injection Verenice 40MG 018 Arpita Chavarria Depomedrol Administered Injection Verenice 40MG 018 Arpita Chavarria Vital Signs Date Vital Result Comment 07/27/2018 Height 70 inches 5'10" Weight 190.50 lb Heart Rate 76 /min BP Systolic 124 mmHg BP Diastolic 70 mmHg Respiratory Rate 18 /min Body Temperature 97.8 F Pain Level 5 BMI (Body Mass Index) 27.3 kg/m2 04/11/2018 Height 70 inches 5'10" Weight 203.00 lb Heart Rate 72 /min BP Systolic Sitting 122 mmHg BP Diastolic Sitting 74 mmHg Respiratory Rate 16 /min Body Temperature 98.0 F Pain Level 2 BMI (Body Mass Index) 29.1 kg/m2 03/23/2018 Height 70 inches 5'10" Weight 203.00 lb BP Systolic Sitting 132 mmHg BP Diastolic Sitting 80 mmHg Respiratory Rate 16 /min Body Temperature 98.7 F Pain Level 0 BMI (Body Mass Index) 29.1 kg/m2 12/11/2017 Height 70 inches 5'10" Weight 203.00 lb Heart Rate 68 /min BP Systolic 134 mmHg BP Diastolic 76 mmHg Respiratory Rate 18 /min Body Temperature 96.7 F Pain Level 0 BMI (Body Mass Index) 29.1 kg/m2 Results Description No Information Procedures Date CPT Code Description Status 04/11/2018 Inject/Drain Joint/Bursa Major W/O US Completed 04/11/2018 Inject/Drain Joint/Bursa Major W/O US Completed 12/11/2017 Inject/Drain Joint/Bursa Major W/O US Completed Encounters Type Date Location Provider CPT E/M Dx Office Visit 04/11/2018 [facility] Chav[facility] M.D. 704[address] M17.12 11:45a [facility] M21.062 M25.562 M25.462 M25.511 M19.011 Office Visit 03/23/2018 9:00a [facility] Chavarria M.D. 34512 M17.12 [facility] M21.062 M25.562 M25.462 M25.511 M19.011 Office Visit 12/11/2017 8:30a [facility] Chavarria M.D. 48671 M17.12 [place] M21.062 M25.562 M25.462 Plan of Care Future Appointment(s):08/20/2018 11:00 am - Verenice Chavarria M.D. at [facility]08/07/2018 7:30 am - Verenice Chavarria M.D. at [facility]
--- OUTSIDE RECORDS SUMMARY | 2018-08-07 05:56 | XMS REPORT | Continuity of Care Document ---
:1945 External Reference #:[id number] Author Name Jose Eduardo Chaudhry M.D. Address [address] [place] [address] Care Team Providers Name Role Phone Brannon Anne MD Care Team Information Music Cataloguer Unavailable Brannon Anne MD Primary Care Physician Unavailable Payers Type Date Identification Numbers Payment Provider Subscriber Effective: Policy Number: [id number] Medicare Bobo Sifuentes 2013 PayID: [id number] [address] [address] [place] [address] Advance Directives Description No Information Available Problems Date Description Provider Status Onset: 07/28/2014 Presbyopia [place] O.[facility]. Active Onset: 07/28/2014 Myopia [place] O.D. Active Onset: 07/28/2014 Vitreous degeneration [place] O.D. Active Onset: 07/28/2014 Nuclear senile cataract [place] O.D. Active Onset: 07/28/2014 Type 2 diabetes mellitus [place] O.D. Active Family History Date Family Member(s) Problem(s) Comments General Diabetes Father Cancer Mother Noncontributory Social History Type Date Description Comments Sex Unknown ETOH Use Occasionally consumes alcohol Tobacco Use Start: Unknown End: Unknown Patient is a former smoker Smoking Status Reviewed: 07/19/18 Patient is a former smoker Allergies, Adverse Reactions, Alerts Description No Known Drug Allergies Medications Medication Date Status Form Strength Qnty SIG Indications Ordering Provider Glipizide Active Tablets 10mg Unknown 000 Testosterone Active Solution 200mg/ml Unknown Enanthate 000 Acyclovir Active Capsules 200mg Unknown 000 Losartan Active Tablets 50mg Take 1 Unknown Potassium 000 Tablet By Mouth Every Day (Instead Of Lisinopri l) Januvia Active Tablets 100mg Take 1 Unknown 000 Tablet By Mouth Every Day Bupropion HCL Active Tablets ER 150mg Take 1 Unknown ER (SR) 000 12HR Tablet By Mouth Every Morning Aspir-Low Active Tablets DR 81mg 1 by Unknown 000 mouth every day Glucosamine 0 Active Capsules 1500Com Unknown Chondroitin 000 1500 Complex Cialis Hx Tablets 10mg Unknown 000 - 018 Lisinopril Hx Tablets 20mg Unknown 000 - 018 Immunizations Description No Information Available Vital Signs Date Vital Result Comment 07/19/2018 10:43am Intraocular Pressure Right Eye 14 mmHg Intraocular Pressure Left Eye 14 mmHg 11/14/2016 8:09am Intraocular Pressure Right Eye 15 mmHg Intraocular Pressure Left Eye 15 mmHg 07/28/2014 10:32am Intraocular Pressure Right Eye 14 mmHg Intraocular Pressure Left Eye 14 mmHg Results Description No Information Available Procedures Date Code Description Status 07/19/2018 12257 Ophthalmoscopy Subsequent Completed 07/19/2018 03370 Eye Exam Est Comprehensive Completed 11/14/2016 92767 Eye Exam Est Intermediate Completed 07/28/2014 30378 Refraction Completed 07/28/2014 08558 Eye Exam Est Comprehensive Completed Encounters Description No Information Available Plan of Treatment No Information Available
[2018-08-07] MEDS ORDERED: Dexamethasone IV* 4 MG/ML 1 ML (4 MG) IV SLOW PU ONE (06:00)
[2018-08-07] MEDS ORDERED: Famotidine IV* 10 MG/ML 2 ML (20 mg) IV ONE (06:00)
[2018-08-07] MEDS ORDERED: ceFAZolin 2 GM PREMIX in ORs 2 GM/50 ML BAG IVPB ONE (06:10)
[2018-08-07] MEDS ORDERED: Famotidine IV* 10 MG/ML 2 ML (20 mg) ONE (06:10)
[2018-08-07] MEDS ORDERED: fentaNYL* 50 MCG/ML 2 ML VIAL (100 MCG VIAL) ONE (06:53)
[2018-08-07] MEDS ORDERED: Midazolam* 1 MG/ML 2 ML VIAL (2 MG) ONE (06:53)
[2018-08-07] MEDS ORDERED: Lidocaine 1%* 5 ML VIAL ONE (07:18)
[2018-08-07] MEDS ORDERED: ROPIVACAINE 5 MG/ML 30 ML BTL (0.5%) ONE (07:18)
[2018-08-07] MEDS ORDERED: Bupivacaine 0.5% SDV PF* 30ML VIAL ONE (07:21)
[2018-08-07] MEDS ORDERED: Propofol* 10 MG/ML 20 ML BTL IV PUSH ONE ×3 (08:32→09:36)
[2018-08-07] MEDS ORDERED: Bupivacaine-MPF SPINAL* 7.5 MG/ML - 2ML AMP ONE (08:32)
[2018-08-07] MEDS ORDERED: Lidocaine 2% PF * 5 ML VIAL ONE (08:32)
[2018-08-07] MEDS ORDERED: fentaNYL* 50 MCG/ML 2 ML VIAL (100 MCG VIAL) IV PRN (09:32)
[2018-08-07] MEDS ORDERED: Acetaminophen TAB* 325 MG PO PRN (09:32)
[2018-08-07] MEDS ORDERED: HYDROcodone/ACETAMIN 5-325 MG* 1 TAB PO PRN (09:32)
[2018-08-07] MEDS ORDERED: Morphine VIAL* 4 MG/ML VIAL (1 ml vial) IV PRN (09:32)
[2018-08-07] MEDS ORDERED: Ketorolac INJ* 30 MG/ML 1 ML VIAL IV PRN (09:32)
[2018-08-07] MEDS ORDERED: Naloxone* 0.4 MG/ML 1 ML VIAL IV PRN (09:32)
[2018-08-07] MEDS ORDERED: Ondansetron INJ* 2 MG/ML VIAL IV PRN ×2 (09:32→10:23)
[2018-08-07] MEDS ORDERED: Bisacodyl SUPP* 10 MG SUPP PR PRN (10:23)
[2018-08-07] MEDS ORDERED: diPHENhydraMINE IV* 50 MG/ML 1 ml VIAL (BENADRYL) IV PRN (10:23)
[2018-08-07] MEDS ORDERED: Ondansetron TAB* 4 MG PO PRN (10:23)
[2018-08-07] MEDS ORDERED: Magnesium Hydroxide LIQ* 30 ML UDC PO PRN (10:23)
[2018-08-07] MEDS ORDERED: oxyCODONE/Acetamin 5/325 MG* TAB PO PRN (10:23)
[2018-08-07] MEDS ORDERED: Polyethylene Glycol 3350* 17 GM PACKET PO PRN (10:23)
[2018-08-07] MEDS ORDERED: Morphine INJ* 2 MG/ML 1 ML SYRINGE (TWO MG - NEW SYRINGE VERSION) IV PRN (10:23)
[2018-08-07] MEDS ORDERED: diPHENhydraMINE PO* 25 MG PO PRN (10:23)
[2018-08-07] MEDS ORDERED: Ketorolac INJ* 30 MG/ML 1 ML VIAL ONE (10:58)
[2018-08-07] MEDS ORDERED: Dextrose 50% Syringe 50 ML* 25 GM/50 ML SYRINGE IV PUSH PRN (11:37)
--- NOTE | 2018-08-07 11:44 | CONSULT ---
Subjective Date of Service: 08/07/18 Interval History: Pt is a 73 year old male with a PMH HTN, T2DM on insulin, end stage osteoarthritis admitted for elective L total knee arthroplasty with Dr Chavarria today after failing conservative treatment. Pt examined post operatively in the PACU. Pt resting comfortably in bed. Rates pain as 1/10. Denies shortness of breath, chest pain, N/V, abdominal pain, dizziness, headache, numbness or tingling. Review of Systems - Measurements Intake and Output: Intake and Output Last 24 Hours 08/05/18 08/06/18 08/07/18 08/08/18 06:59 06:59 06:59 06:59 Intake Total 1450 Output Total 1100 Balance 350 Weight 84.822 kg Intake: IV Fluids 1450 LR 1300 NS 50ML, Cefazolin 2G 50 TXA 100 Output: [place] 900 Estimated Blood Loss 200 - Review of Systems General Comments: 14 point ROS completed. All pertinent positives and negatives are mentioned above. Objective Active Medications: Acetaminophen (Tylenol Tab*) 650 mg PO ONCE PRN PRN Reason: PAIN - MILD Acetaminophen (Tylenol Tab*) 975 mg PO Q8H ILDEFONSO Hydrocodone Bitart/Acetaminophen ([place] 5-325 Tab*) 2 tab PO ONCE PRN PRN Reason: PAIN - MODERATE Acyclovir (Zovirax Tab*) 400 mg PO BID ILDEFONSO Bisacodyl (Dulcolax Supp*) 10 mg [place] DAILY PRN PRN Reason: constipation Cyclobenzaprine HCl (Flexeril Tab*) 5 mg PO TID PRN PRN Reason: SPASMS Dextrose (D50w Syringe 50 Ml*) 12.5 gm IV PUSH .FOR FS < 60 - SS PRN PRN Reason: FS < 60 Diphenhydramine HCl (Benadryl Iv*) 25 mg IV Q6H PRN PRN Reason: itching Diphenhydramine HCl (Benadryl Po*) 25 mg PO Q6H PRN PRN Reason: INSOMNIA Docusate Sodium (Colace Cap*) 100 mg PO BID ILDEFONSO Duloxetine HCl (Cymbalta Cap*) 20 mg PO QAM ILDEFONSO Enoxaparin Sodium (Lovenox(*)) 30 mg SUBCUT Q24H ILDEFONSO Famotidine (Pepcid Iv*) 20 mg IV ONCE ONE Stop: 08/07/18 06:01 Last Admin: 08/07/18 06:41 Dose: 20 mg Fentanyl Citrate (Fentanyl*) 50 mcg IV Q2M PRN PRN Reason: PAIN - MODERATE Lactated Ringer's (Lactated Ringers 1000 Ml Bag*) 1,000 mls @ 125 mls/hr IV PER RATE [facility] Last Admin: 08/07/18 06:40 Dose: 125 mls/hr Tranexamic Acid 1,000 mg/ (Sodium Chloride) 60 mls @ 120 mls/hr IV ONCE Stop: 08/07/18 23:59 Cefazolin Sodium/Dextrose (Kefzol 1 Gm In Dextrose Duplex (*)) 1 gm in 50 mls @ 200 mls/hr IVPB Q8H [facility] Stop: 08/08/18 03:14 Lactated Ringer's (Lactated Ringers 1000 Ml Bag*) 1,000 mls @ 100 mls/hr IV PER RATE [facility] Insulin Human Lispro (Humalog*) 0 units SUBCUT ACHS ILDEFONSO; Protocol Ketorolac Tromethamine (Toradol Inj*) 30 mg IV ONCE PRN PRN Reason: PAIN - MILD Last Admin: 08/07/18 10:59 Dose: 30 mg Lactulose (Lactulose*) 30 ml PO Q6H PRN PRN Reason: constipation Lidocaine/Sodium Bicarbonate (Buffered Lidocaine 0.9% Syrin*) 0.2 ml INTRADERM ONCE ONE Stop: 08/06/18 11:43 Last Admin: 08/07/18 06:40 Dose: 0.2 ml Magnesium Hydroxide (Milk Of Magnesia Liq*) 30 ml PO BID ILDEFONSO Magnesium Hydroxide (Milk Of Magnesia Liq*) 30 ml PO Q6H PRN PRN Reason: constipation Morphine Sulfate (Morphine Vial*) 2 mg IV Q10M PRN PRN Reason: PAIN Morphine Sulfate (Morphine Inj ((Syringe))*) 2 mg IV Q2H PRN PRN Reason: PAIN - SEVERE Naloxone HCl (Narcan*) 0.08 mg IV Q2M PRN PRN Reason: severe induced resp depression Non-Formulary Medication (Pravastatin Sodium [Pravachol]) 40 mg PO BEDTIME [facility] Ondansetron HCl (Zofran Inj*) 4 mg IV ONCE PRN PRN Reason: NAUSEA/VOMITING Ondansetron HCl (Zofran Inj*) 4 mg IV Q6H PRN PRN Reason: nausea Ondansetron HCl (Zofran Tab*) 4 mg PO Q6H PRN PRN Reason: NAUSEA Oxycodone HCl (Roxycodone Tab*) 10 mg PO Q4H PRN PRN Reason: moderate to severe pain Oxycodone/Acetaminophen (Percocet 5/325 Tab*) 1 tab PO Q4H PRN PRN Reason: PAIN Oxycodone/Acetaminophen (Percocet 5/325 Tab*) 2 tab PO Q4H PRN PRN Reason: PAIN Polyethylene Glycol/Electrolytes (Miralax*) 17 gm PO DAILY PRN PRN Reason: Constipation Tramadol HCl (Ultram*) 50 mg PO Q6H PRN PRN Reason: PAIN Warfarin Sodium (Coumadin Tab(*)) 6 mg PO ONCE@1700 ONE; Protocol Stop: 08/07/18 17:01 Vital Signs - 8 hr 08/07/18 08/07/18 08/07/18 06:16 06:17 06:22 Temperature 97.3 F Pulse Rate 72 67 66 Respiratory 12 Rate Blood Pressure 150/82 150/82 (mmHg) O2 Sat by Pulse 94 94 95 Oximetry 08/07/18 08/07/18 08/07/18 07:19 07:20 07:25 Temperature Pulse Rate 71 71 64 Respiratory 17 Rate Blood Pressure 162/87 142/79 (mmHg) O2 Sat by Pulse 95 94 97 Oximetry 08/07/18 08/07/18 08/07/18 07:30 10:23 10:25 Temperature 97.3 F Pulse Rate 62 69 68 Respiratory 14 13 23 Rate Blood Pressure 139/80 118/69 113/81 (mmHg) O2 Sat by Pulse 96 92 91 Oximetry 08/07/18 08/07/18 08/07/18 10:30 10:35 10:45 Temperature Pulse Rate 64 64 61 Respiratory 17 19 19 Rate Blood Pressure 132/75 126/72 134/82 (mmHg) O2 Sat by Pulse 96 94 96 Oximetry Oxygen Devices in Use Now: None, Nasal Cannula Eyes: No Scleral Icterus, PERRLA Ears/Nose/Mouth/Throat: NL Teeth, Lips, Gums, Mucous Membranes Moist Neck: NL Appearance and Movements; NL JVP, Trachea Midline Respiratory: Symmetrical Chest Expansion and Respiratory Effort, Clear to Auscultation Cardiovascular: NL Sounds; No Murmurs; No JVD, RRR, No Edema Abdominal: NL Sounds; No Tenderness; No Distention Extremities: No Edema, No Clubbing, Cyanosis Skin: No Rash or Ulcers, No Nodules or Sclerosis Neurological: Alert and Oriented x 3, NL Muscle Strength and Tone, - - Able to dorsiflex and plantarflex Lines/Tubes/Other Access: Clean, Dry and Intact Peripheral IV Assessment/Plan - Billing Plan By Medical Problem: 1. s/p left total knee arthroplasty: Plan per primary team, ortho. Will continue to to trend H/H. Pain control and bowel regimen per ortho. PT/OT. 2. HTN - Normative after surgery with SBP 130s. Will hold home losartan today in the setting of spinal anesthesia and volume loss. Consider restarting tomorrow. 3. DM - Post op glucose 105. Pt Does take levemir at home, 25-30 units at night. Currently holding levemir and home oral agents and have started lispro ss ACHS and ACHS fingersticks. Pre-op note says that Dr. berrios recommended 20 units of levemir if his fasting glucose is over 150 after surgery, so can consider restarting this as well as oral agents tomorrow if pt is eating. 4. Hx HSV - Continue suppressive therapy with acyclovir 400mg BID VTE PPX: lovenox bridge to heparin per ortho Diet: Carb controlled Code Status: Full Code Admission Status and Rationale: Thank you for this consult. We will continue to follow.
[2018-08-07] MEDS: oxyCODONE TAB* 5 MG TAB PO PRN ×2 (12:42→18:48)
[2018-08-07] MEDS: Acetaminophen TAB* 325 MG PO SCH ×2 (15:24→22:06)
[2018-08-07] MEDS: Cyclobenzaprine TAB* 10 MG PO PRN (15:25)
[2018-08-07] MEDS: traMADol TAB* 50 MG PO PRN (16:18)
[2018-08-07] MEDS: ceFAZolin 1 GM in Dextrose (*) 1 GM/50 ML BAG IVPB SCH (16:20)
--- NOTE | 2018-08-07 16:48 | PN ---
Progress Note - Progress Note Date of Service: 08/07/18 Note: Patient was seen and examined at bedside. He is feeling well with 1/10 knee pain POD 0 s/p ltk replacement. He has no chest pain or shortness of breath. DF/ PF intact, DP2+, sensation intact distally. He has already walked with nursing and intends to D/C to home tomorrow. He has no history of blood clot and is receiving lovenox with bridge to coumadin for DVT prophylaxis.
[2018-08-07] MEDS ORDERED: Warfarin TAB(*) 6 MG PO ONE (17:00)
[2018-08-07] MEDS: Insulin LISPRO* 1 UNITS UNIT SUBCUT SCH ×2 (18:47→21:58)
[2018-08-07] MEDS ORDERED: glipiZIDE TAB* 5 MG PO SCH (19:00)
[2018-08-07] MEDS ORDERED: INSULIN DETEMIR 25 UNIT INJ SCH (21:00)
[2018-08-07] MEDS: CMCS:Pravastatin (NF) 20 MG TAB PO SCH (22:01)
[2018-08-07] MEDS: Acyclovir* 400 MG TAB PO SCH (22:01)
[2018-08-07] MEDS: Docusate CAP* 100 MG PO SCH (22:01)
[2018-08-07] MEDS: oxyCODONE/Acetamin 5/325 MG* TAB PO PRN (22:02)
[2018-08-07] MEDS: Magnesium Hydroxide LIQ* 30 ML UDC PO SCH (22:03)
[2018-08-08] MEDS: oxyCODONE TAB* 5 MG TAB PO PRN ×4 (00:03→13:06)
[2018-08-08] MEDS: Cyclobenzaprine TAB* 10 MG PO PRN ×3 (00:04→22:21)
[2018-08-08] MEDS: ceFAZolin 1 GM in Dextrose (*) 1 GM/50 ML BAG IVPB SCH ×2 (00:17→08:15)
[2018-08-08] MEDS: Morphine VIAL* 4 MG/ML VIAL (1 ml vial) IV PRN ×4 (01:38→22:47)
[2018-08-08] MEDS: traMADol TAB* 50 MG PO PRN (01:40)
[2018-08-08] MEDS: oxyCODONE/Acetamin 5/325 MG* TAB PO PRN ×5 (02:24→22:20)
[2018-08-08 05:31] LABS: Hematocrit 38 % (42-52); Hemoglobin 13.1 g/dl (14.0-18.0); Platelet Count 151 10^3/ul (150-450)
[2018-08-08 05:36] LABS: INR 0.97 (0.77-1.02)
[2018-08-08 05:58] LABS: EGFR Non-African American 83.2 (>60)
[2018-08-08] MEDS: Acetaminophen TAB* 325 MG PO SCH ×3 (07:09→22:45)
[2018-08-08] MEDS: Insulin LISPRO* 1 UNITS UNIT SUBCUT SCH ×4 (08:04→22:26)
[2018-08-08] MEDS ORDERED: SitaGLIPtin (NF) 100 MG TAB PO SCH (09:00)
[2018-08-08] MEDS ORDERED: NON FORMULARY MED* (Losartan Potassium [Cozaar] 50 MG) PO SCH (09:00)
[2018-08-08] MEDS: Acyclovir* 400 MG TAB PO SCH ×2 (09:43→22:40)
[2018-08-08] MEDS: Docusate CAP* 100 MG PO SCH ×2 (09:44→22:21)
[2018-08-08] MEDS: DULoxetine DR CAP* 20 MG CAP.DR PO SCH (09:44)
[2018-08-08] MEDS: Magnesium Hydroxide LIQ* 30 ML UDC PO SCH ×2 (09:45→22:22)
--- NOTE | 2018-08-08 10:21 | PN ---
Subjective Date of Service: 08/08/18 Interval History: Pt states he is currently feeling ok but generally had a very bad night with minimal sleep and severe pain. Pain control and staying on top of his pain has been difficult. He no longer thinks he will be able to go home today. Objective Active Medications: Acetaminophen (Tylenol Tab*) 975 mg PO Q8HR [facility] Last Admin: 08/08/18 07:09 Dose: Not Given Acyclovir (Zovirax Tab*) 400 mg PO BID [facility] Last Admin: 08/08/18 09:43 Dose: 400 mg Bisacodyl (Dulcolax Supp*) 10 mg [place] DAILY PRN PRN Reason: constipation Cyclobenzaprine HCl (Flexeril Tab*) 5 mg PO TID PRN PRN Reason: SPASMS Last Admin: 08/08/18 00:04 Dose: 5 mg Dextrose (D50w Syringe 50 Ml*) 12.5 gm IV PUSH .FOR FS < 60 - SS PRN PRN Reason: FS < 60 Diphenhydramine HCl (Benadryl Iv*) 25 mg IV Q6H PRN PRN Reason: itching Diphenhydramine HCl (Benadryl Po*) 25 mg PO Q6H PRN PRN Reason: INSOMNIA Docusate Sodium (Colace Cap*) 100 mg PO BID [facility] Last Admin: 08/08/18 09:44 Dose: 100 mg Duloxetine HCl (Cymbalta Cap*) 20 mg PO QAM [facility] Last Admin: 08/08/18 09:44 Dose: 20 mg Enoxaparin Sodium (Lovenox(*)) 30 mg SUBCUT Q24H [facility] Glipizide (Glucotrol Tab*) 10 mg PO 1900 [facility] Lactated Ringer's (Lactated Ringers 1000 Ml Bag*) 1,000 mls @ 100 mls/hr IV PER RATE [facility] Last Admin: 08/07/18 22:23 Dose: 100 mls/hr Insulin Glargine (Lantus(*)) 25 units SUBCUT BEDTIME [facility] Insulin Human Lispro (Humalog*) 0 units SUBCUT ACHS [facility]; Protocol Last Admin: 08/08/18 08:04 Dose: 3 units Lactulose (Lactulose*) 30 ml PO Q6H PRN PRN Reason: constipation Losartan Potassium (Cozaar Tab*) 50 mg PO DAILY [facility] Magnesium Hydroxide (Milk Of Magnesia Liq*) 30 ml PO BID [facility] Last Admin: 08/08/18 09:45 Dose: 30 ml Magnesium Hydroxide (Milk Of Magnesia Liq*) 30 ml PO Q6H PRN PRN Reason: constipation Morphine Sulfate (Morphine Vial*) 2 mg IV Q2H PRN PRN Reason: PAIN - SEVERE Last Admin: 08/08/18 06:39 Dose: 2 mg Ondansetron HCl (Zofran Inj*) 4 mg IV Q6H PRN PRN Reason: nausea Ondansetron HCl (Zofran Tab*) 4 mg PO Q6H PRN PRN Reason: NAUSEA Oxycodone HCl (Roxycodone Tab*) 10 mg PO Q4H PRN PRN Reason: moderate to severe pain Last Admin: 08/08/18 08:16 Dose: 10 mg Oxycodone/Acetaminophen (Percocet 5/325 Tab*) 1 tab PO Q4H PRN PRN Reason: PAIN Oxycodone/Acetaminophen (Percocet 5/325 Tab*) 2 tab PO Q4H PRN PRN Reason: PAIN Last Admin: 08/08/18 06:38 Dose: 2 tab Pharmacy Profile Note (Coumadin Daily Reminder*) 0 note FOLLOW UP 1700 [facility] Last Admin: 08/07/18 17:15 Dose: 6 note Polyethylene Glycol/Electrolytes (Miralax*) 17 gm PO DAILY PRN PRN Reason: Constipation Pravastatin Sodium (Pravachol (Nf)) 40 mg PO BEDTIME [facility] Last Admin: 08/07/18 22:01 Dose: 40 mg Tramadol HCl (Ultram*) 50 mg PO Q6H PRN PRN Reason: PAIN Last Admin: 08/08/18 01:40 Dose: 50 mg Vital Signs - 8 hr 08/08/18 08/08/18 08/08/18 02:24 02:26 04:05 Temperature 98.6 F Pulse Rate 78 Respiratory 16 16 16 Rate Blood Pressure 144/72 (mmHg) O2 Sat by Pulse 95 Oximetry 08/08/18 08/08/18 08/08/18 04:15 04:16 05:45 Temperature Pulse Rate Respiratory 18 18 16 Rate Blood Pressure (mmHg) O2 Sat by Pulse Oximetry 08/08/18 08/08/18 08/08/18 06:38 06:39 07:29 Temperature 98.1 F Pulse Rate 82 Respiratory 8 18 18 Rate Blood Pressure 146/77 (mmHg) O2 Sat by Pulse 91 Oximetry 08/08/18 08/08/18 08/08/18 08:00 08:14 08:15 Temperature Pulse Rate Respiratory 18 18 18 Rate Blood Pressure (mmHg) O2 Sat by Pulse Oximetry 08/08/18 08/08/18 08/08/18 08:16 09:56 10:04 Temperature 98.3 F Pulse Rate 95 Respiratory 18 20 Rate Blood Pressure 141/71 (mmHg) O2 Sat by Pulse 96 Oximetry Oxygen Devices in Use Now: None Appearance: Elderly male sitting up in a recliner, NAD Eyes: No Scleral Icterus Ears/Nose/Mouth/Throat: Mucous Membranes Moist Respiratory: Symmetrical Chest Expansion and Respiratory Effort, Clear to Auscultation Cardiovascular: NL Sounds; No Murmurs; No JVD, RRR, - - non-pitting edema to L LE Abdominal: NL Sounds; No Tenderness; No Distention Extremities: No Clubbing, Cyanosis Skin: No Nodules or Sclerosis Neurological: Alert and Oriented x 3 Result Diagrams: 08/08/18 05:02 08/08/18 05:02 Assess/Plan/Problems-Billing Mr Sifuentes is a 73 yo M who has a h/o type II DM and HTN and was admitted post elective L TKR. - Patient Problems (1) Status post total left knee replacement Current Visit: Yes Status: Acute Code(s): Z96.652 - PRESENCE OF LEFT ARTIFICIAL KNEE JOINT SNOMED Code(s): 5340403382954 Comment: Management per orthopedics. (2) HTN (hypertension) Current Visit: Yes Status: Acute Code(s): I10 - ESSENTIAL (PRIMARY) HYPERTENSION SNOMED Code(s): 67305035 Comment: BP is mildly elevated. Add back usual dose of losartan. (3) Type II diabetes mellitus Current Visit: Yes Status: Acute Comment: Sugars are uncontrolled this AM but he did not receive any long acting insulin last evening. Will resume home dose of insulin this evening (lantus instead of levemir). Resume glipizide 10mg daily at 1900. Januvia to be resumed today as well. (4) DVT prophylaxis Current Visit: Yes Status: Acute Code(s): IEU0748 - SNOMED Code(s): 916726237 Comment: lovenox bridge to coumadin (5) Full code status Current Visit: Yes Status: Acute Code(s): Z78.9 - OTHER SPECIFIED HEALTH STATUS SNOMED Code(s): 370297967
--- NOTE | 2018-08-08 10:56 | PN ---
Progress Note - Progress Note Date of Service: 08/08/18 SOAP: Subjective: []Patient seen and examined at bedside. He had difficulty with pain overnight as well as difficulty sleeping due to staff presence. Denies chest pain, shortness of breath, dizziness, nausea. Pain is better controlled today. Objective: []General: Well appearing, NAD LLE: Left knee dressing CDI, cryo unit in use, thigh is soft, DF/PF intact, DP2+ , capillary refill less than two seconds distally, sensation intact distally Calves supple and nontender without erythema, edema or palpable cords Assessment: []POD 1 sp left total knee arthroplastywith Dr Chavarria Plan: []WBAT PT/OT Lovenox, coumadin 8 mg today Plan for DC home tomorrow Vital Signs Temp 98.3 F 08/08/18 10:04 Pulse 95 08/08/18 10:04 Resp 20 08/08/18 09:56 BP 141/71 08/08/18 10:04 Pulse Ox 96 08/08/18 10:04 Intake & Output 08/07/18 08/08/18 08/08/18 18:59 06:59 18:59 Intake Total 9243 974 6105 Output Total 1550 1650 Balance -100 -990 2123 Intake: IV Fluids 1450 1958 LR 1300 1958 NS 50ML, Cefazolin 2G 50 TXA 100 IVPB 165 LR 165 Oral 0 660 Output: Urine 1100 Mckeon 1350 550 Estimated Blood Loss 200 Laboratory Last Values Hgb 13.1 g/dl (14.0-18.0) L 08/08/18 05:02 Hct 38 % (42-52) L 08/08/18 05:02 Plt Count 151 10^3/ul (150-450) 08/08/18 05:02 MPV 9.0 fL (7.4-10.4) 08/08/18 05:02 INR (Anticoag Therapy) 0.97 (0.77-1.02) 08/08/18 05:02 Sodium 130 mmol/L (135-145) L 08/08/18 05:02 Potassium TNP 08/08/18 05:02 Chloride 96 mmol/L (101-111) L 08/08/18 05:02 Carbon Dioxide 27 mmol/L (22-32) 08/08/18 05:02 Anion Gap 7 mmol/L (2-11) 08/08/18 05:02 BUN 16 mg/dL (6-24) 08/08/18 05:02 Creatinine 0.90 mg/dL (0.67-1.17) 08/08/18 05:02 Est GFR ( Amer) 100.7 (>60) 08/08/18 05:02 Est GFR (Non-Af Amer) 83.2 (>60) 08/08/18 05:02 BUN/Creatinine Ratio 17.8 (8-20) 08/08/18 05:02 Glucose 282 mg/dL (70-100) H 08/08/18 05:02 POC Glucose (mg/dL) 269 mg/dL (70-100) H 08/08/18 07:21 Calcium 8.3 mg/dL (8.6-10.3) L 08/08/18 05:02
[2018-08-08] MEDS: Losartan TAB* 25 MG PO SCH (10:59)
[2018-08-08] MEDS: Enoxaparin(*) 30 MG/0.3 ML SYR SUBCUT SCH (11:00)
[2018-08-08] MEDS: Morphine TAB Extended Release (*) 30 MG TAB.ER PO SCH (14:46)
[2018-08-08] MEDS ORDERED: Warfarin TAB(*) 4 MG PO ONE (17:00)
[2018-08-08] MEDS ORDERED: PTO: SitaGLIPtin (NF) 100 MG TAB PO SCH (18:00)
--- NOTE | 2018-08-08 18:53 | OP ---
OPERATIVE REPORT: DATE OF OPERATION: 08/07/18 DATE OF : 49 SURGEON: Verenice Chavarria MD SLASH TRIMMER: LIZZIE Bae Ms. did help throughout the procedure with preparation of the leg, wound retraction, manipulation of the knee, and wound closure. ANESTHESIOLOGIST: Dr. Bear. ANESTHESIA: Spinal. 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 OPERATIVE PROCEDURE: Left total knee arthroplasty. TOURNIQUET TIME: 57 minutes. COMPLICATIONS: None. ESTIMATED BLOOD LOSS: 250 cc. SPECIMENS: Bone and cartilage from the left knee joint, sent to Pathology. HARDWARE USED: This is cemented [employer] total knee arthroplasty hardware. Two packages of Simplex bone cement. For the femur, a left size 6 posterior stabilized Legion femoral component. For the tibia, a size 6 left tibial base plate Liyah II. For the insert, a 9-mm posterior stabilized articular insert size 5/6, and for the patella, a 35-mm 3 peg all-poly patella. BRIEF HISTORY/INDICATIONS: Mr. Sifuentes is a 73-year-old gentleman with many years of increasingly severe left knee pain and valgus deformity. Due to continued pain and decreased quality of life, he elected to undergo left total knee arthroplasty after conservative treatment failed. He failed conservative treatment with anti- inflammatories, pain medications, intraarticular injections , and physical therapy. Radiographs showed [id number] arthritis. Informed consent was obtained from the patient. He understood the risks of surgery included, but were not limited to, bleeding, infection, damage to nearby structures, continued pain, need for further surgery, intraoperative fracture, nerve palsy, hardware failure or loosening, knee stiffness, loss of motion, stroke, heart attack, blood clot, and . He wished to proceed. INTRAOPERATIVE FINDINGS: Intraoperatively, the patient had 10 degree flexion contracture to begin the case with 120 degrees flexion. This was corrected to full extension and 130 degrees flexion intraoperatively. The patient was noted to have a 12-degree valgus deformity that was corrected to anatomic 5 degrees of valgus. The patient was noted to have good bone quality. He did have complete loss of cartilage in the lateral and patellofemoral compartments. DESCRIPTION OF PROCEDURE: Mr. Sifuentes was identified in the preanesthesia unit. His left lower extremity was marked as the correct operative side. Informed consent was signed and placed in the chart. The patient was taken to the operating room and placed under spinal anesthesia. A Mckeon catheter was placed. Tourniquet was placed on the left thigh. Left lower extremity was prepped and draped in the usual sterile fashion. Preop time-out was made to correctly identify the patient's side and site. Appropriate perioperative antibiotics were given within 1 hour of incision. Tourniquet was inflated and total tourniquet time for this procedure was 57 minutes. A midline incision was made with a 10 blade and carried down to the extensor mechanism. A new 10 blade was used to make a standard medial parapatellar arthrotomy. The patella was subluxed laterally. Electrocautery was used to subperiosteally elevate the soft tissue off the superomedial tibia to the sagittal plane. Any osteophytes were carefully removed. The knee was flexed up. The anterior horn of the lateral meniscus and ACL were sharply released. A drill was used to enter the distal femur. Intramedullary distal femoral cutting guide was pinned on the distal femur. Lateral femoral condylar hypoplasia was noted and accounted for. Oscillating saw was used to make the distal femoral cut. Next, the external rotation guide was pinned on the distal femur. Distal femur was sized to a size 6. Size 6 multi-cutting jig was pinned on the distal femur. Oscillating saw was used to make the appropriate 4 chamfer cuts. The PCL was completely released. The tibia was subluxed anteriorly. Extramedullary tibial cutting guide was pinned on the proximal tibia. Oscillating saw was used to make proximal tibial cut perpendicular to the mechanical axis of the tibia. The tibial bone was carefully removed. The knee was brought out into full extension. There was lateral tightness and electrocautery was used to elevate soft tissue along the posterolateral capsule. Any osteophytes were carefully removed. The knee was brought into full extension again and spacer block had good fit with the knee in full extension. Medial and lateral ligaments were well balanced. Flexion and extension gaps were well balanced. The knee was flexed up. A lamina processing manager was placed both medially and laterally. Any remaining meniscus was carefully removed using electrocautery. Curved osteotome was used to remove any posterior osteophytes. Tibial tray and drop gallo were placed and once again confirmed a satisfactory tibial cut. Next, a left size 6 femoral trial was impacted on to the distal femur and had excellent fit and stability. The box for the posterior stabilized implant was prepared using the reamer and box cut osteotome. Size 6 tibial tray trial with a 9-mm insert trial was placed and the knee was taken through a range of motion. The knee had full extension to 130 degrees of flexion with satisfactory patellofemoral tracking. The patella was everted. 9 mm of patellar bone and cartilage were carefully removed using an oscillating saw. The patella was sized to a size 35. Three peg holes were drilled through the size 35 guide. 35 trial patella was placed and the knee was taken through a range of motion. There was satisfactory patellofemoral tracking. All trials were carefully removed. The tibia was subluxed anteriorly. The tibia was sized to a size 6. Proximal tibia was prepared using a size 6 keel punch. All bony cut surfaces were copiously irrigated with sterile saline and dried. Final implants were cemented into place starting with the tibia followed by the femur and lastly the patella. A 9-mm insert trial was placed and the knee was brought out into full extension. Tourniquet was turned down at 57 minutes. Electrocautery was used to obtain meticulous hemostasis. The knee was copiously irrigated with sterile saline. Once the cement had fully cured, the insert trial was removed. Any excess cement was removed from around the capsule and hardware. Final insert chosen was a 9-mm posterior stabilized articular insert, size 5/6. This was locked into position on the tibial tray. Stability of the insert was checked and rechecked and noted to be stable. The knee was once again copiously irrigated with sterile saline. The extensor mechanism was closed using interrupted #1 Vicryls. The rest of the incisions was closed in a layered fashion using 0 and 2-0 Vicryls. The skin was closed using running 3-0 nylon suture. Sterile Xeroform, 4x4s, and Webril were used to cover the incision. Miles wrap and cold packs were placed over this. The patient's anesthesia was reversed without difficulty. He was taken to the PACU in stable condition. Intended weightbearing will be weightbearing as tolerated. Intended DVT prophylaxis will be Coumadin with a Lovenox bridge. [id number]/[facility] #: [id number] MTDMiah
[2018-08-08] MEDS ORDERED: glipiZIDE TAB* 5 MG PO SCH (19:00)
[2018-08-08] MEDS ORDERED: Insulin GLARGINE(*) 1 UNITS UNIT SUBCUT SCH (21:00)
[2018-08-08] MEDS: CMCS:Pravastatin (NF) 20 MG TAB PO SCH (22:39)
[2018-08-09] MEDS: Morphine TAB Extended Release (*) 30 MG TAB.ER PO SCH (02:32)
[2018-08-09] MEDS: oxyCODONE/Acetamin 5/325 MG* TAB PO PRN ×3 (02:33→12:26)
[2018-08-09 05:58] LABS: Hematocrit 37 % (42-52); Hemoglobin 12.6 g/dl (14.0-18.0); Mean Platelet Volume 8.6 fL (7.4-10.4); Platelet Count 161 10^3/ul (150-450)
[2018-08-09 06:05] LABS: INR 1.21 (0.77-1.02)
[2018-08-09] MEDS: Acetaminophen TAB* 325 MG PO SCH (07:29)
[2018-08-09] MEDS: Insulin LISPRO* 1 UNITS UNIT SUBCUT SCH ×2 (08:12→11:40)
[2018-08-09] MEDS: Magnesium Hydroxide LIQ* 30 ML UDC PO SCH (08:37)
[2018-08-09] MEDS: DULoxetine DR CAP* 20 MG CAP.DR PO SCH (08:37)
[2018-08-09] MEDS: Acyclovir* 400 MG TAB PO SCH (08:37)
[2018-08-09] MEDS: Docusate CAP* 100 MG PO SCH (08:37)
[2018-08-09] MEDS: Losartan TAB* 25 MG PO SCH (08:38)
[2018-08-09] MEDS ORDERED: PTO: SitaGLIPtin (NF) 100 MG TAB PO SCH (09:00)
--- NOTE | 2018-08-09 09:22 | PN ---
Subjective Date of Service: 08/09/18 Interval History: Pt is feeling better today. He got about 4hr of sleep last night. He has no pain but feels his L LE is stiff. He is feeling ready to go home today. Objective Active Medications: Acetaminophen (Tylenol Tab*) 975 mg PO Q8HR [facility] Last Admin: 08/09/18 07:29 Dose: Not Given Acyclovir (Zovirax Tab*) 400 mg PO BID [facility] Last Admin: 08/09/18 08:37 Dose: 400 mg Bisacodyl (Dulcolax Supp*) 10 mg [place] DAILY PRN PRN Reason: constipation Cyclobenzaprine HCl (Flexeril Tab*) 5 mg PO TID PRN PRN Reason: SPASMS Last Admin: 08/08/18 22:21 Dose: 5 mg Dextrose (D50w Syringe 50 Ml*) 12.5 gm IV PUSH .FOR FS < 60 - SS PRN PRN Reason: FS < 60 Diphenhydramine HCl (Benadryl Iv*) 25 mg IV Q6H PRN PRN Reason: itching Diphenhydramine HCl (Benadryl Po*) 25 mg PO Q6H PRN PRN Reason: INSOMNIA Docusate Sodium (Colace Cap*) 100 mg PO BID [facility] Last Admin: 08/09/18 08:37 Dose: 100 mg Duloxetine HCl (Cymbalta Cap*) 20 mg PO QAM [facility] Last Admin: 08/09/18 08:37 Dose: 20 mg Enoxaparin Sodium (Lovenox(*)) 30 mg SUBCUT Q24H [facility] Last Admin: 08/08/18 11:00 Dose: 30 mg Glipizide (Glucotrol Tab*) 10 mg PO 1900 [facility] Last Admin: 08/08/18 17:43 Dose: 10 mg Lactated Ringer's (Lactated Ringers 1000 Ml Bag*) 1,000 mls @ 100 mls/hr IV PER RATE [facility] Last Admin: 08/07/18 22:23 Dose: 100 mls/hr Insulin Glargine (Lantus(*)) 25 units SUBCUT BEDTIME [facility] Last Admin: 08/08/18 22:24 Dose: 25 units Insulin Human Lispro (Humalog*) 0 units SUBCUT ACHS [facility]; Protocol Last Admin: 08/09/18 08:12 Dose: 2 units Lactulose (Lactulose*) 30 ml PO Q6H PRN PRN Reason: constipation Losartan Potassium (Cozaar Tab*) 50 mg PO DAILY [facility] Last Admin: 08/09/18 08:38 Dose: 50 mg Magnesium Hydroxide (Milk Of Magnesia Liq*) 30 ml PO BID [facility] Last Admin: 08/09/18 08:37 Dose: 30 ml Magnesium Hydroxide (Milk Of Magnesia Liq*) 30 ml PO Q6H PRN PRN Reason: constipation Morphine Sulfate (Morphine Vial*) 2 mg IV Q2H PRN PRN Reason: PAIN - SEVERE Last Admin: 08/08/18 22:47 Dose: 2 mg Morphine Sulfate (Ms Contin(*)) 30 mg PO Q12H [facility] Last Admin: 08/09/18 02:32 Dose: 30 mg Ondansetron HCl (Zofran Inj*) 4 mg IV Q6H PRN PRN Reason: nausea Ondansetron HCl (Zofran Tab*) 4 mg PO Q6H PRN PRN Reason: NAUSEA Oxycodone HCl (Roxycodone Tab*) 10 mg PO Q4H PRN PRN Reason: moderate to severe pain Last Admin: 08/08/18 13:06 Dose: 10 mg Oxycodone/Acetaminophen (Percocet 5/325 Tab*) 1 tab PO Q4H PRN PRN Reason: PAIN Oxycodone/Acetaminophen (Percocet 5/325 Tab*) 2 tab PO Q4H PRN PRN Reason: PAIN Last Admin: 08/09/18 08:38 Dose: 2 tab Pharmacy Profile Note (Coumadin Daily Reminder*) 0 note FOLLOW UP 1700 [facility] Last Admin: 08/08/18 17:32 Dose: 1 note Polyethylene Glycol/Electrolytes (Miralax*) 17 gm PO DAILY PRN PRN Reason: Constipation Pravastatin Sodium (Pravachol (Nf)) 40 mg PO BEDTIME [facility] Last Admin: 08/08/18 22:39 Dose: 40 mg Sitagliptin Phosphate (Januvia (Nf)) 100 mg PO 0900 [facility]; Protocol Last Admin: 08/09/18 08:37 Dose: 100 mg Tramadol HCl (Ultram*) 50 mg PO Q6H PRN PRN Reason: PAIN Last Admin: 08/08/18 01:40 Dose: 50 mg Vital Signs - 8 hr 08/09/18 08/09/18 08/09/18 02:32 02:33 02:43 Temperature 99.3 F Pulse Rate 86 Respiratory 16 16 24 Rate Blood Pressure 142/70 (mmHg) O2 Sat by Pulse 91 Oximetry 08/09/18 08/09/18 08/09/18 04:35 07:18 08:00 Temperature 98.2 F Pulse Rate 76 Respiratory 16 16 18 Rate Blood Pressure 129/55 (mmHg) O2 Sat by Pulse 95 95 Oximetry 08/09/18 08/09/18 08:38 09:04 Temperature Pulse Rate 79 Respiratory 18 Rate Blood Pressure (mmHg) O2 Sat by Pulse 95 Oximetry Oxygen Devices in Use Now: None Appearance: Elderly male sitting up in a recliner chair, NAD Eyes: No Scleral Icterus Ears/Nose/Mouth/Throat: Mucous Membranes Moist Respiratory: Symmetrical Chest Expansion and Respiratory Effort, Clear to Auscultation - few coarse crackles at the L base Cardiovascular: NL Sounds; No Murmurs; No JVD, RRR Abdominal: NL Sounds; No Tenderness; No Distention Extremities: No Clubbing, Cyanosis, - - cryounit in place on L knee Skin: No Nodules or Sclerosis Neurological: Alert and Oriented x 3 Result Diagrams: 08/09/18 05:38 08/08/18 11:55 Assess/Plan/Problems-Billing Mr Sifuentes is a 73 yo M who has a h/o type II DM and HTN and was admitted post elective L TKR. - Patient Problems (1) Status post total left knee replacement Current Visit: Yes Status: Acute Code(s): Z96.652 - PRESENCE OF LEFT ARTIFICIAL KNEE JOINT SNOMED Code(s): 5384964852143 Comment: Management per orthopedics. (2) HTN (hypertension) Current Visit: Yes Status: Acute Code(s): I10 - ESSENTIAL (PRIMARY) HYPERTENSION SNOMED Code(s): 53373718 Comment: BP is under good control on home dose of losartan. (3) Type II diabetes mellitus Current Visit: Yes Status: Acute Comment: Sugars remain uncontrolled but he just received his januvia today. I do not think the januvia alone will be enough to bring down his sugars but at home he modifies his insulin dosing based on what his sugars are at home. He will monitor the sugars closely and adjust his insulin dose as needed. He has a follow up with Dr. Quinteros's office early next month. (4) DVT prophylaxis Current Visit: Yes Status: Acute Code(s): WQQ8283 - SNOMED Code(s): 183948719 Comment: lovenox bridge to coumadin (5) Full code status Current Visit: Yes Status: Acute Code(s): Z78.9 - OTHER SPECIFIED HEALTH STATUS SNOMED Code(s): 003037386
--- NOTE | 2018-08-09 10:32 | PN ---
Progress Note - Progress Note Date of Service: 08/09/18 SOAP: Subjective: []Patient seen and examined at bedside. He feels well and desires DC to home today. Denies CP, SOB, dizziness, nausea. Objective: []General: Well appearing, NAD LLE: Left knee dressing changed by Dr. Chavarria this morning without complication , dressing remains CDI, cryo unit in use, thigh is soft, DF/PF intact, DP2+, capillary refill less than two seconds distally, sensation intact distally Calves supple and nontender without erythema, edema or palpable cords Assessment: []POD 2 sp left total knee arthroplasty with Dr Chavarria Plan: []WBAT PT/OT Lovenox, coumadin 8 mg today DC to home today recheck sodium before DC due to hyponatremia yesterday Vital Signs Temp 98.2 F 08/09/18 07:18 Pulse 79 08/09/18 09:04 Resp 18 08/09/18 08:38 BP 129/55 08/09/18 07:18 Pulse Ox 95 08/09/18 09:04 Intake & Output 08/08/18 08/09/18 08/09/18 18:59 06:59 18:59 Intake Total 2723 440 120 Output Total 200 650 Balance 2523 -210 120 Intake: IV Fluids 1957 LR 195 IVPB 165 LR 165 Oral 600 440 120 Output: Urine 200 650 Other: Estimated Void Small Medium # Voids 1 1 Laboratory Last Values Hgb 12.6 g/dl (14.0-18.0) L 08/09/18 05:38 Hct 37 % (42-52) L 08/09/18 05:38 Plt Count 161 10^3/ul (150-450) 08/09/18 05:38 MPV 8.6 fL (7.4-10.4) 08/09/18 05:38 INR (Anticoag Therapy) 1.21 (0.77-1.02) H 08/09/18 05:38 Sodium 130 mmol/L (135-145) L 08/08/18 05:02 Potassium 4.3 mmol/L (3.5-5.0) 08/08/18 11:55 Chloride 96 mmol/L (101-111) L 08/08/18 05:02 Carbon Dioxide 27 mmol/L (22-32) 08/08/18 05:02 Anion Gap 7 mmol/L (2-11) 08/08/18 05:02 BUN 16 mg/dL (6-24) 08/08/18 05:02 Creatinine 0.90 mg/dL (0.67-1.17) 08/08/18 05:02 Est GFR ( Amer) 100.7 (>60) 08/08/18 05:02 Est GFR (Non-Af Amer) 83.2 (>60) 08/08/18 05:02 BUN/Creatinine Ratio 17.8 (8-20) 08/08/18 05:02 Glucose 282 mg/dL (70-100) H 08/08/18 05:02 POC Glucose (mg/dL) 210 mg/dL (70-100) H 08/09/18 07:33 Calcium 8.3 mg/dL (8.6-10.3) L 08/08/18 05:02
[2018-08-09] MEDS: Enoxaparin(*) 30 MG/0.3 ML SYR SUBCUT SCH (11:07)
[2018-08-09 11:34] VITALS: BP 125/56
--- NOTE | 2018-08-10 10:06 | DS ---
AMENDED REPORT NOW INCLUDES DESIGNATED COSIGNER DISCHARGE SUMMARY: DATE OF ADMISSION: 08/07/18 DATE OF DISCHARGE: 08/09/18 PROVIDER: Dr. Verenice Chavarria.* (DICTATED BY LIZZIE BELLE) TELECOM BILLING ANALYST: LIZZIE Bae. 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 OPERATIVE PROCEDURE: Left total knee arthroplasty. HISTORY: The patient is a 73-year-old male with years of increasingly severe left knee pain. He elected to undergo left total knee arthroplasty after failing conservative management. HOSPITAL COURSE: The patient was admitted to [facility] on . He underwent left total knee arthroplasty without complication. He is followed by hospitalist service during his stay. Postop day 1, he was well appearing, in no acute distress. Dressing was clean, dry and intact. Thigh was is soft. Dorsiflexion, plantar flexion intact. DP pulse 2+. Sensation intact distally. He did require the addition of long-acting morphine which controlled his pain quite well. Postop day 2, he was well appearing, in no acute distress. He met his goals with physical therapy. On exam, his left knee dressing was changed by Dr. Chavarria this morning without complication. Dressing was clean, dry and intact. Thigh was soft. Dorsiflexion, plantar flexion intact. DP pulse 2+. Sensation intact distally. Vitals: Temperature 98.2, pulse 79, respiratory rate 18, blood pressure 129/55 and pulse ox 95. Laboratory studies, INR was 1.21, hemoglobin 12.6, hematocrit 37. Sodium had been measured at 130 on 08/08/18. On 08/09/18, it was rechecked to be 137. Of note, patient's vital signs, there are readings in the low 90s and one reading at 89. When checked on different fingers at the same timing, the patient's readings were roughly 94, 95. He does have it seems poor readings in some fingers. He does have history of diabetes, which he follows along with Dr. Quinteros for. Please note that if checked on a different finger simultaneously oxygen saturation was 94 versus 89. He understands that he is to follow up with Dr. Quinteros regarding his diabetes and vascular supply into his digits. He also understands that he should do regular foot checks and follow up with Dr. Quinteros for this as well. Patient was deemed to be medically and orthopedically stable for discharge home. DISCHARGE MEDICATIONS: Include, 1. Multivitamin daily. 2. Pravastatin 40 mg p.o. at bedtime. 3. Glucosamine chondroitin 2 tabs p.o. q.a.m. 4. Glipizide 10 mg p.o. daily. 5. Insulin 25 units injected at bedtime. 6. Insulin detemir. 7. Fish oil 1000 mg p.o. q.a.m. 8. Duloxetine 20 mg p.o. q.a.m. 9. Januvia 100 mg p.o. q.a.m. 10. Losartan 50 mg p.o. q.a.m. 11. Aspirin 81 mg p.o. q.a.m. 12. Testosterone enanthate 200 mg/mL 75 mg, see instructions. 13. Acyclovir 400 mg p.o. b.i.d. 14. Bisacodyl 10 mg p.r.n. at bedtime. 15. Cyclobenzaprine 5 mg p.o. t.i.d., p.r.n. 16. Docusate 100 mg p.o. b.i.d. 17. Oxycodone 10 mg p.o. q.4 hours p.r.n. 18. Warfarin 2 mg p.o. 1 to 3 tabs daily, dose depends on INR. 19. Acetaminophen 975 mg p.o. q.8 hours p.r.n. DISCHARGE PLAN: Patient will be weightbearing as tolerated. He will be doing outpatient physical therapy and out-patient lab draws. Initially on post-op day 3, Coumadin dosing 08/09/18, 8 mg; 08/10/18, 6 mg; 08/11/18 and 08/12/18, 4 mg each day. INR on 08/09/18 was 1.21. He is going to recheck his INR on 09/18 for further dosing instructions. Pain control, patient requests to have oxycodone alone rather than Percocet. He will take oxycodone 5 mg 1 to 2 tabs by mouth every 4 to 6 hours needed for pain, maximum of 10 tabs per day. Wean off his narcotic medication as your pain allows. Cyclobenzaprine 10 mg one tablet every 8 hours as needed for pain. Wean off if your pain allows. Follow up with Dr. Chavarria in 10 to 14 days. Meds were [place] [id number] DISCHARGE DISPOSITION: To home. LIZZIE BELLE [id number]/CPS #: [id number] KAM
== END 2018-08-09 12:45 | disposition home or self-care (01) | DRG 470 ==
LOC: AA 05:51 → SSU 10:23
PROVIDERS: ADMIT Orthopaedic Surgery Adult Reconstructive Orthopaedic Surgery; ATTEND Orthopaedic Surgery Adult Reconstructive Orthopaedic Surgery
PROC: 0SRD0J9 Replacement of Left Knee Joint with Synthetic Substitute, Cemented, Open Approach (ICD-10-PCS; principal; 2018-08-07 07:30)
DX: M17.12 Unilateral primary osteoarthritis, left knee (principal); E87.1 Hypo-osmolality and hyponatremia; I10 Essential (primary) hypertension; E11.9 Type 2 diabetes mellitus without complications; M21.062 Valgus deformity, not elsewhere classified, left knee; E78.00 Pure hypercholesterolemia, unspecified; H91.90 Unspecified hearing loss, unspecified ear; K63.5 Polyp of colon; B00.9 Herpesviral infection, unspecified; F32.9 Major depressive disorder, single episode, unspecified; E29.1 Testicular hypofunction; M25.762 Osteophyte, left knee; Z82.5 Family history of asthma and other chronic lower respiratory diseases; Z80.8 Family history of malignant neoplasm of other organs or systems; Z72.89 Other problems related to lifestyle; Z87.442 Personal history of urinary calculi; Z82.49 Family history of ischemic heart disease and other diseases of the circulatory system; Z83.3 Family history of diabetes mellitus; Z83.49 Family history of other endocrine, nutritional and metabolic diseases; Z79.4 Long term (current) use of insulin; Z79.82 Long term (current) use of aspirin; Z79.01 Long term (current) use of anticoagulants
CPT/HCPCS: 36415; 80048; 83036; 84132; 84300; 85014; 85018; 85049; 85610; A9270-GY; C1776; G8978-GP-CJ; G8979-GP-CI; J0690; J1650; J1885; J2250; J2270; J2704; J2795; J3010

== ENCOUNTER 2019-11-05 06:56 | Day surgery (SDC) | payer MEDICARE ==
[2019-11-05] MEDS ORDERED: Midazolam* 1 MG/ML 2 ML VIAL (2 MG) ONE ×2 (07:54→08:19)
[2019-11-05 08:42] VITALS: BP 113/71
--- NOTE | 2019-11-05 11:44 | OP ---
DATE OF OPERATION: 11/05/19 [facility] DATE OF : 49 SURGEON: Dr. Jose Eduardo Chaudhry. WIRE STRETCHER: None. ANESTHESIA: Topical with intravenous sedation. PRE-OP DIAGNOSIS: Cataract with astigmatism, right eye. POST-OP DIAGNOSIS: Cataract with astigmatism, right eye. OPERATIVE PROCEDURE: Phacoemulsification and cataract extraction with posterior chamber toric intraocular lens implant, right eye. COMPLICATIONS: None. BLOOD LOSS: None. DESCRIPTION OF PROCEDURE: The patient was brought to the operating room and received intravenous sedation. A drop of tetracaine was placed in his right eye. The patient was prepped and draped in the usual sterile fashion for ophthalmic surgery and attention was directed to the right eye where a speculum was placed. A paracentesis was created at the 11 o'clock position and 0.1 cc of 1% preservative- free lidocaine was injected into the anterior chamber followed by DisCoVisc. The eye was digitally stabilized while a 2.75 mm keratome was used to create a triplanar clear corneal incision at the 9 o'clock position. A continuous curvilinear capsulorrhexis was created with a cystotome and Utrata forceps. BSS on a cannula was used to hydrodissect the lens from the capsule. Phacoemulsification was performed in a [id number] technique and 4 fragments were removed. Cortical material was removed with irrigation and aspiration. The capsular bag was polished. The capsular bag was inflated with Provisc. The surface of the eye was lubricated. The eye pressure was measured and found to be appropriate. The ORA device was employed to help guide lens choice and [id number] diopter lens was selected. It was folded and placed into the eye. The reticle on the ORA helped guide lens placement to a 125 degrees. The lens was stabilized at this position using a Sinskey hook through the paracentesis. Irrigation and aspiration was performed to remove viscoelastic from the eye. The Sinskey hook was removed. BSS on a cannula was used to hydrate the corneal stroma and seal the wound. At the end of the case, the pupil was round. The lens was centered, stable, and axially aligned. The eye pressure appeared normal and the wound was watertight. The speculum was removed. Topical Maxitrol ointment was placed on the surface of the eye. The eye was closed, patched and shielded and the patient was sent to the recovery room in stable condition with post-operative instructions and followup appointment given. [id number]/[facility] #: [id number] KAM
[2019-11-05] MEDS ORDERED: Neomycin/Polymy/Dex OPHTH.OIN* 3.5 GM ONE (14:06)
[2019-11-05] MEDS ORDERED: Phenylephrine OPHTH SOL 2.5%* 2 ML ONE (14:06)
[2019-11-05] MEDS ORDERED: Ketorolac 0.5% OPHTH (NF) 0.5 % 5 ML BTL ONE (14:06)
[2019-11-05] MEDS ORDERED: Cyclopentolate 1% OPTH.SOL* 2 ML BTL ONE (14:06)
[2019-11-05] MEDS ORDERED: Tropicamide 1% OPTH.SOL* BTL ONE (14:06)
[2019-11-05] MEDS ORDERED: Lidocaine 1% MPF ** 5 ML VIAL ONE (14:06)
[2019-11-05] MEDS ORDERED: Tetracaine 0.5% OPTH.SOL 4 ML* 1 DROP BTL ONE (14:06)
== END 2019-11-05 09:02 | disposition home or self-care (01) ==
LOC: OREAST 06:56
PROVIDERS: ATTEND Ophthalmology
DX: H25.11 Age-related nuclear cataract, right eye (principal); H52.201 Unspecified astigmatism, right eye; E11.9 Type 2 diabetes mellitus without complications; Z79.84 Long term (current) use of oral hypoglycemic drugs; I10 Essential (primary) hypertension; A60.00 Herpesviral infection of urogenital system, unspecified
CPT/HCPCS: A9270-GY; J2250; V2787

== ENCOUNTER 2019-11-12 07:03 | Day surgery (SDC) | payer MEDICARE ==
[~2019-11-12 07:03] MED LIST changes: +Acetaminophen TAB* 325 MG PO PRN; -Buffered Lidocaine 0.9% SYRIN* 5 ML/SYR SYRINGE INTRADERM ONE; +Buffered Lidocaine 1% SYRIN* 1 ML/SYRINGE INTRADERM ONE; -Tranexamic Acid 1,000 MG in NS 0.9% 50 ML* (outpatient use) IV SCH
[2019-11-12] MEDS ORDERED: fentaNYL* 50 MCG/ML 2 ML VIAL (100 MCG VIAL) ONE (07:28)
[2019-11-12] MEDS ORDERED: Midazolam* 1 MG/ML 2 ML VIAL (2 MG) ONE (07:28)
[2019-11-12] MEDS ORDERED: Propofol* 10 MG/ML 20 ML BTL ONE (08:17)
[2019-11-12 08:46] VITALS: BP 121/74
[2019-11-12] MEDS ORDERED: Ketorolac 0.5% OPHTH (NF) 0.5 % 5 ML BTL ONE (09:32)
[2019-11-12] MEDS ORDERED: Tetracaine 0.5% OPTH.SOL 4 ML* 1 DROP BTL ONE (09:32)
[2019-11-12] MEDS ORDERED: Phenylephrine OPHTH SOL 2.5%* 2 ML ONE (09:32)
[2019-11-12] MEDS ORDERED: Tropicamide 1% OPTH.SOL* BTL ONE (09:32)
[2019-11-12] MEDS ORDERED: Lidocaine 1% MPF ** 5 ML VIAL ONE (09:32)
[2019-11-12] MEDS ORDERED: Neomycin/Polymy/Dex OPHTH.OIN* 3.5 GM ONE (09:32)
[2019-11-12] MEDS ORDERED: Cyclopentolate 1% OPTH.SOL* 2 ML BTL ONE (09:32)
--- NOTE | 2019-11-12 22:45 | OP ---
DATE OF OPERATION: 11/12/[address] [facility] DATE OF : 49 SURGEON: Jose Eduardo Chaudhry MD [employer] WORKERS: None. ANESTHESIA: Topical with intravenous sedation. PRE-OP DIAGNOSIS: Cataract with astigmatism, left eye. POST-OP DIAGNOSIS: Cataract with astigmatism, left eye. OPERATIVE PROCEDURE: Phacoemulsification and cataract extraction with posterior chamber toric intraocular lens implant, left eye. COMPLICATIONS: None. BLOOD LOSS: None. DESCRIPTION OF PROCEDURE: The patient was brought to the operating room and received intravenous sedation. A drop of tetracaine was placed in the patient' s left eye. The patient was prepped and draped in the usual sterile fashion for ophthalmic surgery and attention was directed to the left eye where a speculum was placed. A paracentesis was created at the 5 o'clock position and 0.1 cc of 1% preservative-free lidocaine was injected into the anterior chamber followed by DisCoVisc. The eye was digitally stabilized while a 2.75 mm keratome was used to create a triplanar clear corneal incision at the 5 o'clock position. A continuous curvilinear capsulorrhexis was created with a cystotome and Utrata forceps. BSS on a cannula was used to hydrodissect the lens from the capsule. Phacoemulsification was performed in a [id number]-[id number]-kzkvoog technique to create 4 fragments which were removed. Residual cortical material was removed with irrigation and aspiration. The capsular bag was polished. Provisc was used to inflate the capsular bag in the anterior chamber. The surface of the eye was lubricated. The intraocular pressure was checked and found to be normal. The ORA device was employed. An [id number] diopter lens was chosen. The lens was folded and inserted into the capsular bag. It was dialed to the 145-degree axis as per the reticle on the ORA. The lens was stabilized in this position using a Sinskey hook with a paracentesis incision while irrigation and aspiration were performed to remove viscoelastic from the eye. The Sinskey hook was removed. BSS on a cannula was used to hydrate the corneal stoma and seal the wound. At the end of the case, the pupil was round. The lens was centered, stable and axially aligned. The eye pressure appeared normal and the wound was watertight. The speculum was removed. Topical Maxitrol ointment was placed on the surface of the eye. The eye was closed, patched, and shielded, and the patient was sent to the recovery room in stable condition with postoperative instructions and followup appointment given. [id number]/[facility] #: [id number] KAM
== END 2019-11-12 08:54 | disposition home or self-care (01) ==
LOC: OREAST 07:03
PROVIDERS: ATTEND Ophthalmology
DX: H25.12 Age-related nuclear cataract, left eye (principal); H52.202 Unspecified astigmatism, left eye; E11.9 Type 2 diabetes mellitus without complications; Z79.84 Long term (current) use of oral hypoglycemic drugs; I10 Essential (primary) hypertension; A60.00 Herpesviral infection of urogenital system, unspecified
CPT/HCPCS: A9270-GY; J2250; J2704; J3010; V2787

== ENCOUNTER 2021-03-06 13:07 | Inpatient (IN) ==
[2021-03-06] MEDS ORDERED: Heparin - STEMI 5,000 UNITS/ML 1 ml VIAL IV ONE (13:18)
[2021-03-06] MEDS ORDERED: NS 0.9% 1000 ml BAG 1,000 ML IV ONE (13:19)
[2021-03-06] MEDS ORDERED: VERAPAMIL 2.5 MG/ML 2 ML VIAL ** 5 mg/2 ml ONE (13:36)
[2021-03-06] MEDS ORDERED: nitroGLYCERIN DRIP 25,000 MCG/250 ML BTL ONE (13:36)
[2021-03-06] MEDS ORDERED: Heparin 2 UNITS/ML 1000 mls 2,000 ML IV ONE (13:36)
[2021-03-06] MEDS ORDERED: Lidocaine 1% VIAL 10 MG/ML VIAL ONE (13:36)
[2021-03-06] MEDS ORDERED: Heparin 1,000 UNIT/ML 10 ml (10,000 UNITS) CATHLAB/DIALYSIS ONE (13:36)
[2021-03-06] MEDS ORDERED: Iohexol 350 (CONTRAST) 200 ML MDV IV ONE ×2 (13:36→13:37)
[2021-03-06 13:45] LABS: ABS Lymphocytes 2.4 10^3/ul (1.0-4.8); ABS Neutrophils 8.3 10^3/ul (1.5-7.7); Eosinophil % 0.3 %; Hematocrit 53 % (42-52); Mean Corpuscular HGB Conc 34 g/dL (31-36); Mean Corpuscular Hemoglobin 30 pg (27-31); Mean Corpuscular Volume 88 fL (80-94); Mean Platelet Volume 8.9 fL (7.4-10.4); Platelet Count 231 10^3/uL (150-450); Red Blood Count 6.07 10^6 /uL (4.18-5.48); Red Cell Distribution Width 14 % (10-15); White Blood Count 11.8 10^3/uL (3.5-10.8)
[2021-03-06 13:55] LABS: ALT 74 U/L (7-52); AST 39 U/L (13-39); Albumin/Globulin Ratio 1.7 (1-3); Alkaline Phosphatase 62 U/L (35-149); Anion Gap 13 mmol/L (2-11); Blood Urea Nitrogen 20 mg/dL (6-24); CO2 Carbon Dioxide 25 mmol/L (22-32); Calcium 10.8 mg/dL (8.6-10.3); Chloride 100 mmol/L (101-111); Creatine Kinase 193 U/L (10-223); EGFR African American 75.4 (>60); EGFR Non-African American 62.3 (>60); Globulin 2.9 g/dL (2-4); Glucose 211 mg/dL (70-100); LDL Cholesterol Direct 94 mg/dL; Potassium 4.5 mmol/L (3.5-5.0); Sodium 138 mmol/L (135-145); Total Protein 7.9 g/dL (6.4-8.9)
[2021-03-06 13:59] LABS: Troponin I 0.04 ng/mL (<0.03)
[2021-03-06] MEDS ORDERED: fentaNYL 100 mcg/2 ml 50 MCG/ML VIAL ONE (14:02)
[2021-03-06] MEDS ORDERED: Midazolam 5 mg/5 ml VIAL 1 mg/ml 5 ml VIAL (5 mg) ONE (14:02)
[2021-03-06] MEDS ORDERED: Amiodarone 150 mg IVPREMIX 150 MG/100 ML BAG IV ONE (14:03)
[2021-03-06] MEDS ORDERED: Metoprolol Tartrate 5 mg VIAL 5 ml VIAL (1 mg/ml) ONE (14:08)
[2021-03-06] MEDS ORDERED: Bivalirudin 250 MG VIAL ONE (14:20)
[2021-03-06 14:26] LABS: Activated Partial Thrombo Time 29.1 seconds (26.0-38.0); INR 0.97 (0.82-1.09)
[2021-03-06 14:43] LABS: INR 0.97 (0.82-1.09)
[2021-03-06] MEDS ORDERED: NS 0.9% 1000 ml BAG 1,000 ML IV SCH (15:15)
[2021-03-06] MEDS ORDERED: Ondansetron 4 mg VIAL 2 MG/ML 2 ml VIAL IV PRN (15:16)
[2021-03-06 15:18] LABS: Magnesium 2.1 mg/dL (1.9-2.7)
[2021-03-06 17:29] LABS: Troponin I 1.62 ng/mL (<0.03)
[2021-03-06 22:34] LABS: Troponin I 7.74 ng/mL (<0.03)
[2021-03-07 03:19] LABS: ABS Eosinophils 0.1 10^3/ul (0-0.6); ABS Lymphocytes 2.4 10^3/ul (1.0-4.8); ABS Neutrophils 7.4 10^3/ul (1.5-7.7); Eosinophil % 0.8 %; Hematocrit 48 % (42-52); Hemoglobin 16.3 g/dL (14.0-18.0); Lymphocyte % 22.1 %; Mean Corpuscular HGB Conc 34 g/dL (31-36); Mean Corpuscular Hemoglobin 30 pg (27-31); Mean Corpuscular Volume 89 fL (80-94); Mean Platelet Volume 8.6 fL (7.4-10.4); Nucleated Red Blood Cells % 0.1; Platelet Count 216 10^3/uL (150-450); Red Blood Count 5.38 10^6 /uL (4.18-5.48); Red Cell Distribution Width 14 % (10-15)
[2021-03-07 03:53] LABS: Anion Gap 8 mmol/L (2-11); Blood Urea Nitrogen 15 mg/dL (6-24); CO2 Carbon Dioxide 25 mmol/L (22-32); Calcium 8.8 mg/dL (8.6-10.3); Chloride 102 mmol/L (101-111); Cholesterol 153 mg/dL; EGFR Non-African American 77.7 (>60); Glucose 156 mg/dL (70-100); HDL Cholesterol 35.6 mg/dL; LDL Cholesterol 72 mg/dL; Potassium 4.1 mmol/L (3.5-5.0); Sodium 135 mmol/L (135-145); Triglycerides 228 mg/dL
[2021-03-07 04:10] LABS: Troponin I 11.04 ng/mL (<0.03)
[2021-03-07] MEDS ORDERED: Dextrose 50% Syringe 50 ml 25 GM/50 ML SYRINGE IV PUSH PRN (09:19)
[2021-03-08 03:38] LABS: Troponin I 6.72 ng/mL (<0.03)
[2021-03-08 10:17] VITALS: BP 115/68
== END 2021-03-08 11:45 | disposition home or self-care (01) | DRG 247 ==
LOC: ED 13:07 → CHICATH 13:52 → ICU 15:35
PROVIDERS: ATTEND Internal Medicine Critical Care Medicine

== ENCOUNTER 2022-03-27 13:02 | Inpatient (IN) ==
[2022-03-27] MEDS ORDERED: Heparin - STEMI 5,000 UNITS/ML 1 ml VIAL IV ONE (13:11)
[2022-03-27] MEDS ORDERED: fentaNYL 100 mcg/2 ml 50 MCG/ML VIAL IV SLOW PU ONE (13:24)
[2022-03-27 13:26] LABS: ABS Basophils 0.1 10^3/ul (0-0.2); ABS Lymphocytes 2.8 10^3/ul (1.0-4.8); ABS Monocytes 1.1 10^3/ul (0-0.8); ABS Neutrophils 5.9 10^3/ul (1.5-7.7); Eosinophil % 0.5 %; Hematocrit 50 % (42-52); Hemoglobin 16.4 g/dL (14.0-18.0); Lymphocyte % 28.8 %; Mean Corpuscular HGB Conc 33 g/dL (31-36); Mean Corpuscular Hemoglobin 29 pg (27-31); Mean Corpuscular Volume 88 fL (80-94); Mean Platelet Volume 8.9 fL (7.4-10.4); Platelet Count 248 10^3/uL (150-450); Red Blood Count 5.62 10^6 /uL (4.18-5.48); Red Cell Distribution Width 16 % (10-15); White Blood Count 9.9 10^3/uL (3.5-10.8)
[2022-03-27] MEDS ORDERED: fentaNYL 100 mcg/2 ml 50 MCG/ML VIAL ONE (13:30)
[2022-03-27] MEDS ORDERED: Midazolam 5 mg/5 ml VIAL 1 mg/ml 5 ml VIAL (5 mg) ONE (13:30)
[2022-03-27] MEDS ORDERED: nitroGLYCERIN DRIP 25,000 MCG/250 ML BTL ONE (13:31)
[2022-03-27] MEDS ORDERED: VERAPAMIL 2.5 MG/ML 2 ML VIAL ** 5 mg/2 ml ONE (13:31)
[2022-03-27] MEDS ORDERED: Iohexol 350 (CONTRAST) 200 ML MDV IV ONE (13:31)
[2022-03-27] MEDS ORDERED: Lidocaine 1% MPF 5 ML VIAL ONE (13:31)
[2022-03-27] MEDS ORDERED: Heparin 2 UNITS/ML 1000 mls 2,000 ML IV ONE (13:31)
[2022-03-27] MEDS ORDERED: Heparin 1,000 UNIT/ML 10 ml (10,000 UNITS) CATHLAB/DIALYSIS ONE (13:31)
[2022-03-27 13:35] LABS: Activated Partial Thrombo Time 29.8 seconds (26.0-38.0); INR 1.04 (0.86-1.15)
[2022-03-27] MEDS ORDERED: Bivalirudin 250 MG VIAL ONE (13:50)
[2022-03-27 14:06] LABS: Albumin 4.6 g/dL (3.2-5.2); Calcium 10.5 mg/dL (8.6-10.3); Magnesium 2.1 mg/dL (1.9-2.7); Potassium 4.8 mmol/L (3.5-5.0); Total Protein 7.8 g/dL (6.4-8.9); eGFR CKD-EPI 58.7 (>60)
[2022-03-27 14:07] LABS: Albumin/Globulin Ratio 1.4 (1-3); Globulin 3.2 g/dL (2-4); Total Bilirubin 1.3 mg/dL (0.2-1.0)
[2022-03-27] MEDS ORDERED: Eptifibatide IV (Load dose) 2 MG/ML 10 ml VIAL ONE (14:08)
[2022-03-27] MEDS ORDERED: Atropine 0.1 MG/ML 10 ml SYR (1 mg) ONE (14:32)
[2022-03-27] MEDS ORDERED: NS 0.9% 1000 ml BAG 1,000 ML IV SCH (15:30)
[2022-03-27] MEDS ORDERED: Heparin DRIP 25,000 UNITS BAG 25,000 UNITS/500 ML BAG IV SCH (15:45)
[2022-03-27] MEDS ORDERED: Heparin 5000 UNITS/ML 1 mL VIAL IV SCH (16:00)
[2022-03-27 16:35] LABS: ABS Lymphocytes 1.6 10^3/ul (1.0-4.8); ABS Monocytes 0.6 10^3/ul (0-0.8); ABS Neutrophils 8.1 10^3/ul (1.5-7.7); Eosinophil % 0.2 %; Hematocrit 48 % (42-52); Hemoglobin 15.7 g/dL (14.0-18.0); Lymphocyte % 15.5 %; Mean Corpuscular HGB Conc 33 g/dL (31-36); Mean Corpuscular Hemoglobin 29 pg (27-31); Mean Corpuscular Volume 88 fL (80-94); Mean Platelet Volume 9.2 fL (7.4-10.4); Platelet Count 216 10^3/uL (150-450); Red Blood Count 5.44 10^6 /uL (4.18-5.48); Red Cell Distribution Width 16 % (10-15); White Blood Count 10.3 10^3/uL (3.5-10.8)
[2022-03-27] MEDS ORDERED: Dextrose 50% Syringe 50 ml 25 GM/50 ML SYRINGE IV PUSH PRN (16:50)
[2022-03-27] MEDS ORDERED: Eptifibatide Infusion @ 2 mcg/kg/min, max of 15 mg/hr (CrCl >/= 50) IV SCH (18:26)
[2022-03-28 06:05] LABS: ABS Eosinophils 0.1 10^3/ul (0-0.6); ABS Monocytes 0.8 10^3/ul (0-0.8); ABS Neutrophils 6.4 10^3/ul (1.5-7.7); Eosinophil % 0.7 %; Hematocrit 46 % (42-52); Hemoglobin 15.3 g/dL (14.0-18.0); Lymphocyte % 21.8 %; Mean Corpuscular HGB Conc 33 g/dL (31-36); Mean Corpuscular Hemoglobin 30 pg (27-31); Mean Corpuscular Volume 89 fL (80-94); Mean Platelet Volume 8.6 fL (7.4-10.4); Platelet Count 177 10^3/uL (150-450); Red Blood Count 5.16 10^6 /uL (4.18-5.48); Red Cell Distribution Width 15 % (10-15); White Blood Count 9.4 10^3/uL (3.5-10.8)
[2022-03-28 06:47] LABS: Potassium 4.5 mmol/L (3.5-5.0)
[2022-03-28 07:01] LABS: Albumin 4.1 g/dL (3.2-5.2); Calcium 8.8 mg/dL (8.6-10.3)
[2022-03-28 07:31] LABS: Albumin/Globulin Ratio 1.5 (1-3); Globulin 2.8 g/dL (2-4); HDL Cholesterol 41.5 mg/dL; Total Bilirubin 1.3 mg/dL (0.2-1.0); eGFR CKD-EPI 89.6 (>60)
[2022-03-28] MEDS: Enoxaparin 40 MG/0.4 ML SYR SUBCUT SCH (12:13)
[2022-03-28] MEDS ORDERED: Insulin GLARGINE 100 un/ml 10 ml VIAL SUBCUT SCH (21:00)
[2022-03-29 05:13] LABS: ABS Lymphocytes 1.6 10^3/ul (1.0-4.8); ABS Monocytes 0.8 10^3/ul (0-0.8); ABS Neutrophils 4.9 10^3/ul (1.5-7.7); Eosinophil % 0.6 %; Hematocrit 45 % (42-52); Lymphocyte % 21.8 %; Mean Corpuscular HGB Conc 33 g/dL (31-36); Mean Corpuscular Hemoglobin 29 pg (27-31); Mean Corpuscular Volume 88 fL (80-94); Mean Platelet Volume 8.7 fL (7.4-10.4); Nucleated Red Blood Cells % 0.1; Platelet Count 181 10^3/uL (150-450); Red Cell Distribution Width 16 % (10-15); White Blood Count 7.4 10^3/uL (3.5-10.8)
[2022-03-29 05:42] LABS: Albumin 4.2 g/dL (3.2-5.2); Albumin/Globulin Ratio 1.5 (1-3); Calcium 9.4 mg/dL (8.6-10.3); Globulin 2.8 g/dL (2-4); Potassium 4.4 mmol/L (3.5-5.0); Total Bilirubin 1.3 mg/dL (0.2-1.0); eGFR CKD-EPI 90.9 (>60)
[2022-03-29] MEDS: Enoxaparin 40 MG/0.4 ML SYR SUBCUT SCH (12:00)
[2022-03-29] MEDS ORDERED: Insulin GLARGINE 100 un/ml 10 ml VIAL SUBCUT SCH (21:00)
[2022-03-30 06:09] LABS: Calcium 8.3 mg/dL (8.6-10.3); Magnesium 1.8 mg/dL (1.9-2.7); Potassium 4.1 mmol/L (3.5-5.0); eGFR CKD-EPI 92.2 (>60)
[2022-03-30] MEDS ORDERED: Magnesium Sulfate 2 gm BAG 2 GM/50 ML BAG IVPB ONE (06:23)
[2022-03-30 08:14] VITALS: BP 138/84
== END 2022-03-30 11:05 | disposition home or self-care (01) | DRG 251 ==
LOC: ED 13:02 → CHICATH 13:22 → ICU 16:37
PROVIDERS: ADMIT Internal Medicine; ATTEND Internal Medicine Critical Care Medicine

== ENCOUNTER 2024-10-03 06:17 | Observation (INO) ==
[2024-10-03 07:05] LABS: Hematocrit 33.8 % (38-53); Hemoglobin 11.1 g/dL (13.2-16.3); Mean Corpuscular Hemoglobin 28.4 pg (27-33); Mean Corpuscular Hgb Conc 32.8 g/dL (31-36); Mean Corpuscular Volume 86.6 fL (80-97); Mean Platelet Volume 9.9 fL (7.5-11.2); Platelet Count 346 10^3/uL (150-450); Red Cell Distribution Width 16.7 % (12-17); White Blood Count 20.2 10^3/uL (3.6-10.2)
[2024-10-03 07:32] LABS: INR 1.44 (0.85-1.14)
[2024-10-03] MEDS: Prochlorperazine 5 mg/ml 2 ml VIAL (10 mg) IV ONE (07:44)
[2024-10-03] MEDS: Lactated Ringers 1000 ml BAG 1,000 ML IV ONE (07:47)
[2024-10-03 07:59] LABS: Albumin 2.8 g/dL (3.5-5.7); Albumin/Globulin Ratio 1.3 (1-3); Anion Gap 12 mmol/L (2-16); Blood Urea Nitrogen 57 mg/dL (6-24); CO2 Carbon Dioxide 26 mmol/L (22-32); Calcium 8.3 mg/dL (8.6-10.3); Chloride 87 mmol/L (101-111); Creatinine, Serum 2.07 mg/dL (0.67-1.17); Globulin 2.2 g/dL (2-4); Glucose 543 mg/dL (70-100); Sodium 125 mmol/L (135-145); Total Bilirubin 26.3 mg/dL (0.2-1.0); eGFR CKD-EPI 32.4 (>60)
[2024-10-03 08:09] LABS: ALT 1226 U/L (7-52); Alkaline Phosphatase 2411 U/L (35-149)
[2024-10-03 08:10] LABS: ABS Lymphocytes 1.8 10^3/uL (1.0-4.8); ABS Neutrophils 17.3 10^3/uL (1.5-7.6); ABS Nucleated RBC 0.04 10^3/ul; Lymphocyte % 8.7 %; Nucleated Red Blood Cells % 0.2 %/100WBC (0.0-0.8); RBC Morphology Normal (Normal)
[2024-10-03 10:41] LABS: Glucose Confirmatory 487 mg/dL (70-100)
[2024-10-03] MEDS ORDERED: Ondansetron 4 mg VIAL 2 MG/ML 2 ml VIAL IV PRN (11:45)
[2024-10-03] MEDS ORDERED: Zosyn per Pharmacy NOTE FOLLOW UP SCH (12:00)
[2024-10-03] MEDS: Insulin GLARGINE 100 un/ml 10 ml VIAL SUBCUT ONE (12:18)
[2024-10-03] MEDS: Piperacillin/Tazobac 3.375 BAG 3.375 GM/100 ML BAG IV ONE (12:18)
[2024-10-03] MEDS ORDERED: Atropine 1% (ORAL/SL) 15 ML BTL SL PRN (12:48)
[2024-10-03] MEDS ORDERED: Morphine ORAL CONCENTRATE 5 MG/0.25 ML ORAL.SYRIN SL PRN (12:48)
[2024-10-03] MEDS: NS 0.9% 1000 ml BAG 1,000 ML IV SCH (13:05)
[2024-10-03 13:59] VITALS: BP 164/96
[2024-10-03] MEDS ORDERED: LORazepam 2 mg VIAL 1 ml IV PUSH PRN (15:28)
[2024-10-03] MEDS ORDERED: Lorazepam PYXIS KEY PRN (15:29)
[2024-10-03] MEDS: Morphine 2 MG/ML SYRINGE IV PRN (15:59)
[2024-10-03] MEDS ORDERED: ZOSYN 3.375 GM Q8H per EXTENDED INFUSION IV SCH (16:00)
== END 2024-10-03 16:55 | disposition expired ==
LOC: ED 06:17 → EDHOLD 06:17 → MED 13:18
PROVIDERS: ADMIT Hospitalist; ATTEND Hospitalist